=== PATIENT | male | born 1955 | race Caucasian/White ===

== ENCOUNTER 2023-07-15 20:48 | Inpatient (IN) | payer MEDICARE, OTHER ==
[2023-07-15 21:04] LABS: Glucose,Whole Blood 536 mg/dL (70-110)
[2023-07-15] MEDS: SODIUM CHLORIDE 0.9% 1,000 ML IV STA (21:41)
[2023-07-15] MEDS: ACETAMINOPHEN TAB 500 MG TAB PO STA (21:41)
[2023-07-15] MEDS: SODIUM CHLORIDE 0.9% 1,000 ML IV SCH (21:41)
[2023-07-15] MEDS: CYCLOBENZAPRINE 10 MG TAB PO STA (21:42)
[2023-07-15 22:02] LABS: Basophils % (A) 0 %; Eosinophils # (A) 0.1 k/uL (0-0.7); Eosinophils % (A) 0 %; HCT 50.2 % (39.0-53.0); HGB 15.6 gm/dL (13.0-17.5); Hypochromasia Slight; Lymphocytes # (A) 0.3 k/uL (1.0-4.8); Lymphocytes % (A) 1 %; MCH 29.1 pg (25.0-35.0); MCHC 31.1 g/dL (31.0-37.0); MCV 93.7 fL (80.0-100.0); Mean Platelet Volume 8.6; Monocytes # (A) 1.1 k/uL (0-1.0); Monocytes % (A) 4 %; Neutrophils # (A) 28.7 k/uL (1.3-7.7); Neutrophils % (A) 95 %; Platelet Count 377 k/uL (150-450); RBC 5.36 m/uL (4.30-5.90); WBC 30.3 k/uL (3.8-10.6)
[2023-07-15 22:19] LABS: ALT 89 U/L (4-49); AST 96 U/L (17-59); African American GFR (CKD) 65 (>60 ml/min/1.73 sqM); Albumin 3.3 g/dL (3.5-5.0); Alkaline Phosphatase 118 U/L (38-126); Anion Gap 13 mmol/L; Blood Urea Nitrogen 67 mg/dL (9-20); Calcium 8.8 mg/dL (8.4-10.2); Carbon Dioxide 24 mmol/L (22-30); Chloride 95 mmol/L (98-107); Non-African American GFR(CKD) 57 (>60 ml/min/1.73 sqM); Potassium 5.4 mmol/L (3.5-5.1); Sodium 132 mmol/L (137-145); Total Bilirubin 1.2 mg/dL (0.2-1.3); Total Protein 7.7 g/dL (6.3-8.2)
[2023-07-15 22:29] LABS: Creatine Kinase 1003 U/L (55-170); Glucose 597 mg/dL (74-99)
--- NOTE | 2023-07-15 22:36 | XR ---
EXAMINATION TYPE: XR chest 2V DATE OF EXAM: 07/15/2023 COMPARISON: NONE HISTORY: Fever TECHNIQUE: Frontal and lateral views of the chest are obtained. FINDINGS: There is no focal air space opacity, pleural effusion, or pneumothorax seen. The cardiac silhouette size is upper limits of normal. The osseous structures are intact. IMPRESSION: No acute pulmonary infiltrate.
[2023-07-15 23:02] LABS: RBC Morphology Normal
[2023-07-15] MEDS: SODIUM CHLORIDE 0.9% 1,000 ML IV ONE (23:15)
--- NOTE | 2023-07-16 00:39 | ED ---
General Adult HPI - General Chief complaint: Recheck/Abnormal Lab/Rx Stated complaint: Hyperglycemia Time Seen by Provider: 07/15/23 20:55 Source: patient Mode of arrival: EMS Limitations: no limitations - History of Present Illness Initial comments: 67-year-old male with past medical history of diabetes, hypertension who presents emergency department after he spent the weekend on the ground. Patient states that his right leg gave out and he fell to the ground. States that he was unable to get up. He did not hit his head. Denies any neck or back pain. Does admit to pain in his buttocks from sitting on the more weekend. His sister found him on the ground. When EMS checked on the patient they found that his blood glucose was over 500. He has been unable to take his prescribed medications as he recently moved to the area and does not have refills of most. Patient admits to numbness in the back of his thighs but is able to wiggle his toes. He denies any chest pain or difficulty breathing. Patient does have a fever. No other alleviating, precipitating or modifying factors - Related Data Previous Rx's Medication Instructions Recorded Acetaminophen Tab [Tylenol] 650 mg PO Q6HR PRN tab 07/20/23 DULoxetine HCL [Cymbalta] 30 mg PO DAILY cap 07/20/23 Heparin Sodium,Porcine (1 ml) 5,000 unit SQ Q8H each 07/20/23 [Heparin Sodium] INSULIN ASPART (NovoLOG) [NovoLOG 0 unit SQ ACHS each 07/20/23 (formulary)] Insulin Detemir (Levemir) [Levemir] 25 unit SQ DAILY@0700 each 07/20/23 Pantoprazole [Protonix] 40 mg PO AC-BRKFST tab 07/20/23 Tamsulosin [Flomax] 0.4 mg PO PC-BRKFST cap 07/20/23 cefUROXime axetiL [Cefuroxime] 500 mg PO BID 10 Days #20 tab 07/20/23 Allergies Allergy/AdvReac Type Severity Reaction Status Date / Time No Known Allergies Allergy Verified 07/16/23 07:25 Review of Systems ROS Statement: Those systems with pertinent positive or pertinent negative responses have been documented in the HPI. ROS Other: All systems not noted in ROS Statement are negative. Past Medical History Past Medical History: Diabetes Mellitus, Hypertension History of Any Multi-Drug Resistant Organisms: None Reported Past Surgical History: Prostate Surgery Past Psychological History: No Psychological Hx Reported Smoking Status: Former smoker Past Alcohol Use History: None Reported Past Drug Use History: None Reported - Past Family History Mother Family Medical History: Congestive Heart Failure (CHF) Additional Family Medical History / Comment(s): passed Father Family Medical History: Myocardial Infarction (NH) Additional Family Medical History / Comment(s): passed General Exam Limitations: no limitations General appearance: alert, in no apparent distress Head exam: Present: atraumatic, normocephalic, normal inspection Eye exam: Present: normal appearance, PERRL, EOMI. Absent: scleral icterus, conjunctival injection, periorbital swelling ENT exam: Present: mucous membranes dry Cardiovascular Exam: Present: tachycardia GI/Abdominal exam: Present: soft, normal bowel sounds. Absent: distended, tenderness, guarding, rebound, rigid Extremities exam: Present: other (Patient's states he has spasm in the right buttock.) Back exam: Present: normal inspection Neurological exam: Present: alert, oriented X3, CN II-XII intact Psychiatric exam: Present: normal affect Course Vital Signs 07/15/23 07/15/23 07/15/23 20:51 21:00 22:00 Temperature 100.8 F H Pulse Rate 118 H 114 H 112 H Pulse Rate [ Pulse Oximetery ] Respiratory 20 23 26 H Rate Blood Pressure 143/80 143/80 116/70 Blood Pressure [Right Arm] O2 Sat by Pulse 95 95 95 Oximetry 07/15/23 07/16/23 07/16/23 23:00 00:00 05:14 Temperature 98.9 F 98.0 F Pulse Rate 109 H 93 Pulse Rate [ Pulse Oximetery ] Respiratory 28 H 22 Rate Blood Pressure 127/57 126/65 Blood Pressure [Right Arm] O2 Sat by Pulse 88 L 96 Oximetry 07/16/23 07/16/23 07/16/23 06:50 07:27 10:47 Temperature 98.9 F 98.1 F Pulse Rate 109 H 100 78 Pulse Rate [ Pulse Oximetery ] Respiratory 23 95 H 18 Rate Blood Pressure 136/73 136/73 136/73 Blood Pressure [Right Arm] O2 Sat by Pulse 96 94 L Oximetry 07/16/23 12:06 Temperature 98.3 F Pulse Rate Pulse Rate [ 92 Pulse Oximetery ] Respiratory 18 Rate Blood Pressure Blood Pressure 140/77 [Right Arm] O2 Sat by Pulse 93 L Oximetry Procedures - Sepsis Sepsis Focused Exam #1 Time Sepsis Criteria Met: 03:15 Sepsis Focused Exam Date: 07/16/23 Sepsis Focused Exam Time: 04:00 Sepsis Focused Exam Complete: Yes Vital Signs & RN Notes Reviewed: Yes Capillary Refill: < 2 Seconds: Fingers, Toes Peripheral Pulses: Normal: Radial (R), Radial (L), Dorsalis Pedis (R), Dorsalis Pedis (L) Skin Color: Normal for Patient Respiratory Exam: normal lung sounds Cardiovascular Exam: regular rate Medical Decision Making - Medical Decision Making Was pt. sent in by a medical professional or institution (, PA, AMMUNITION SUPERVISOR, urgent care, hospital, or assisted...) When possible be specific @ -No Did you speak to anyone other than the patient for history (EMS, parent, family, police, friend...)? What history was obtained from this source @ -I spoke with EMS for history Did you review nursing and triage notes (agree or disagree)? Why? @ -I reviewed and agree with nursing and triage notes Were old charts reviewed (outside hosp., previous admission, EMS record, old EKG, old radiological studies, urgent care reports/EKG's, assisted records)? Report findings @ -No old charts were reviewed Differential Diagnosis (chest pain, altered mental status, abdominal pain women, abdominal pain men, vaginal bleeding, weakness, fever, dyspnea, syncope, he adache, dizziness, GI bleed, back pain, seizure, CVA, palpatations, mental health, musculoskeletal)? @ -Differential Weakness: Hypoglycemia, shock, sepsis, hyponatremia, anemia, infection, NH, ETOH, adverse medicine reaction, overdose, stroke, this is not meant to be an all-inclusive list. EKG interpreted by me (3pts min.). @ -EKG demonstrates sinus rhythm with a rate of 82. CT interval 158. QRS 100. QTc of 367. No acute ST segment elevations or depressions X-rays interpreted by me (1pt min.). @ -Yes which demonstrates no acute intrathoracic process CT interpreted by me (1pt min.). @ -None done U/S interpreted by me (1pt. min.). @ -None done What testing was considered but not performed or refused? (CT, X-rays, U/S, labs)? Why? @ -None What meds were considered but not given or refused? Why? @ -None Did you discuss the management of the patient with other professionals (laury miguel i.e. , PA, AMMUNITION SUPERVISOR, lab, RT, psych nurse, director social, constitutional law professor, teacher, dental officer, case folder)? Give summary @ -Spoke with Stacia from [facility] who will admit the patient Was smoking cessation discussed for >3mins.? @ -No Was critical care preformed (if so, how long)? @ -No Were there social determinants of health that impacted care today? How? (Homelessness, low income, unemployed, alcoholism, drug addiction, transportation, low edu. Level, literacy, decrease access to med. care, fdc, rehab)? @ -Patient relocated to the area and has not had his medications Was there de-escalation of care discussed even if they declined (Discuss DNR or withdrawal of care, Hospice)? DNR status @ -No What co-morbidities impacted this encounter? (DM, HTN, Smoking, COPD, CAD, Cancer, CVA, ARF, Chemo, Hep., AIDS, mental health diagnosis, sleep apnea, morbid obesity)? @ -Hypertension, diabetes Was patient admitted / discharged? Hospital course, mention meds given and route, prescriptions, significant lab abnormalities, going to OR and other pertinent info. @Upon arrival patient seen and evaluated in room 2. Thorough history and physical exam was performed. Laboratory studies are conducted. Chest x-ray was performed. I did recommend admission. Patient is covered with antibiotics for urinary tract infection. Patient admitted in stable condition Undiagnosed new problem with uncertain prognosis? @ -No Drug Therapy requiring intensive monitoring for toxicity (Heparin, Nitro, Ins ulin, Cardizem)? @ -No Were any procedures done? @ -No Diagnosis/symptom? @ -Acute fall, prolonged downtime, Acute hyperglycemia, lactic acidosis, elevated CK, leukocytosis, UTI Acute, or Chronic, or Acute on Chronic? @ -Acute Uncomplicated (without systemic symptoms) or Complicated (systemic symptoms)? @ -Complicated Side effects of treatment? @ -No Exacerbation, Progression, or Severe Exacerbation? @ -No Poses a threat to life or bodily function? How? (Chest pain, USA, NH, pneumonia, PE, COPD, DKA, ARF, appy, cholecystitis, CVA, Diverticulitis, Homicidal, Suicida l, threat to staff... and all critical care pts) @ -Yes as patient has significant lab abnormalities due to fall Source of infection is identified at 3:15 AM when patient is able to finally provide a urine sample. He had already been started on 130 cc of fluid and given a dose of Rocephin - Lab Data Result diagrams: 07/19/23 13:05 07/19/23 13:05 Lab Results 07/15/23 07/15/23 07/15/23 Range/Units 21:00 21:00 21:00 WBC 30.3 H (3.8-10.6) k/uL RBC 5.36 (4.30-5.90) m/uL Hgb 15.6 (13.0-17.5) gm/dL Hct 50.2 (39.0-53.0) % MCV 93.7 (80.0-100.0) fL MCH 29.1 (25.0-35.0) pg MCHC 31.1 (31.0-37.0) g/dL RDW 15.0 (11.5-15.5) % Plt Count 377 (150-450) k/uL MPV 8.6 Neutrophils % 95 % Lymphocytes % 1 % Monocytes % 4 % Eosinophils % 0 % Basophils % 0 % Neutrophils # 28.7 H (1.3-7.7) k/uL Lymphocytes # 0.3 L (1.0-4.8) k/uL Monocytes # 1.1 H (0-1.0) k/uL Eosinophils # 0.1 (0-0.7) k/uL Basophils # 0.0 (0-0.2) k/uL Manual Slide Review Performed RBC Morphology Normal Hypochromasia Slight Sodium 132 L (137-145) mmol/L Potassium 5.4 H (3.5-5.1) mmol/L Chloride 95 L (98-107) mmol/L Carbon Dioxide 24 (22-30) mmol/L Anion Gap 13 mmol/L BUN 67 H (9-20) mg/dL Creatinine 1.32 H (0.66-1.25) mg/dL Est GFR (CKD-EPI)AfAm 65 (>60 ml/min/1.73 sqM) Est GFR (CKD-EPI)NonAf 57 (>60 ml/min/1.73 sqM) Glucose 597 H* (74-99) mg/dL POC Glucose (mg/dL) 536 H (70-110) mg/dL POC Glu Requirements Manager ID Olimpia Summers Lactic Ac Sepsis Rflx Plasma Lactic Acid [place] (0.7-2.0) mmol/L Calcium 8.8 (8.4-10.2) mg/dL Total Bilirubin 1.2 (0.2-1.3) mg/dL AST 96 H (17-59) U/L ALT 89 H (4-49) U/L Alkaline Phosphatase 118 (38-126) U/L Creatine Kinase 1003 H* (55-170) U/L Total Protein 7.7 (6.3-8.2) g/dL Albumin 3.3 L (3.5-5.0) g/dL Urine Color Urine Appearance (Clear) Urine pH (5.0-8.0) Ur Specific [place] (1.001-1.035) Urine Protein (Negative) Urine Glucose (UA) (Negative) Urine Ketones (Negative) Urine Blood (Negative) Urine Nitrite (Negative) Urine Bilirubin (Negative) Urine Urobilinogen (<2.0) mg/dL Ur Leukocyte Esterase (Negative) Urine RBC (0-5) /hpf Urine WBC (0-5) /hpf Amorphous Sediment (None) /hpf Urine Bacteria (None) /hpf Hyaline Casts (0-2) /lpf Urine Mucus (None) /hpf Urine Yeast (Budding) (None) /hpf Acetone, Qual Negative (Negative) 07/15/23 07/15/23 07/16/23 Range/Units 21:00 22:38 00:56 WBC (3.8-10.6) k/uL RBC (4.30-5.90) m/uL Hgb (13.0-17.5) gm/dL Hct (39.0-53.0) % MCV (80.0-100.0) fL MCH (25.0-35.0) pg MCHC (31.0-37.0) g/dL RDW (11.5-15.5) % Plt Count (150-450) k/uL MPV Neutrophils % % Lymphocytes % % Monocytes % % Eosinophils % % Basophils % % Neutrophils # (1.3-7.7) k/uL Lymphocytes # (1.0-4.8) k/uL Monocytes # (0-1.0) k/uL Eosinophils # (0-0.7) k/uL Basophils # (0-0.2) k/uL Manual Slide Review RBC Morphology Hypochromasia Sodium (137-145) mmol/L Potassium (3.5-5.1) mmol/L Chloride (98-107) mmol/L Carbon Dioxide (22-30) mmol/L Anion Gap mmol/L BUN (9-20) mg/dL Creatinine (0.66-1.25) mg/dL Est GFR (CKD-EPI)AfAm (>60 ml/min/1.73 sqM) Est GFR (CKD-EPI)NonAf (>60 ml/min/1.73 sqM) Glucose (74-99) mg/dL POC Glucose (mg/dL) 497 H (70-110) mg/dL POC Glu Requirements Manager ID Olimpia Summers Lactic Ac Sepsis Rflx Y Plasma Lactic Acid [place] 4.2 H* (0.7-2.0) mmol/L Calcium (8.4-10.2) mg/dL Total Bilirubin (0.2-1.3) mg/dL AST (17-59) U/L ALT (4-49) U/L Alkaline Phosphatase (38-126) U/L Creatine Kinase (55-170) U/L Total Protein (6.3-8.2) g/dL Albumin (3.5-5.0) g/dL Urine Color Urine Appearance (Clear) Urine pH (5.0-8.0) Ur Specific [place] (1.001-1.035) Urine Protein (Negative) Urine Glucose (UA) (Negative) Urine Ketones (Negative) Urine Blood (Negative) Urine Nitrite (Negative) Urine Bilirubin (Negative) Urine Urobilinogen (<2.0) mg/dL Ur Leukocyte Esterase (Negative) Urine RBC (0-5) /hpf Urine WBC (0-5) /hpf Amorphous Sediment (None) /hpf Urine Bacteria (None) /hpf Hyaline Casts (0-2) /lpf Urine Mucus (None) /hpf Urine Yeast (Budding) (None) /hpf Acetone, Qual (Negative) 07/16/23 07/16/23 Range/Units 00:59 01:37 WBC (3.8-10.6) k/uL RBC (4.30-5.90) m/uL Hgb (13.0-17.5) gm/dL Hct (39.0-53.0) % MCV (80.0-100.0) fL MCH (25.0-35.0) pg MCHC (31.0-37.0) g/dL RDW (11.5-15.5) % Plt Count (150-450) k/uL MPV Neutrophils % % Lymphocytes % % Monocytes % % Eosinophils % % Basophils % % Neutrophils # (1.3-7.7) k/uL Lymphocytes # (1.0-4.8) k/uL Monocytes # (0-1.0) k/uL Eosinophils # (0-0.7) k/uL Basophils # (0-0.2) k/uL Manual Slide Review RBC Morphology Hypochromasia Sodium (137-145) mmol/L Potassium (3.5-5.1) mmol/L Chloride (98-107) mmol/L Carbon Dioxide (22-30) mmol/L Anion Gap mmol/L BUN (9-20) mg/dL Creatinine (0.66-1.25) mg/dL Est GFR (CKD-EPI)AfAm (>60 ml/min/1.73 sqM) Est GFR (CKD-EPI)NonAf (>60 ml/min/1.73 sqM) Glucose (74-99) mg/dL POC Glucose (mg/dL) (70-110) mg/dL POC Glu Requirements Manager ID Lactic Ac Sepsis Rflx Plasma Lactic Acid [place] 2.2 H* (0.7-2.0) mmol/L Calcium (8.4-10.2) mg/dL Total Bilirubin (0.2-1.3) mg/dL AST (17-59) U/L ALT (4-49) U/L Alkaline Phosphatase (38-126) U/L Creatine Kinase (55-170) U/L Total Protein (6.3-8.2) g/dL Albumin (3.5-5.0) g/dL Urine Color Light Yellow Urine Appearance Turbid (Clear) Urine pH 7.0 (5.0-8.0) Ur Specific [place] 1.016 (1.001-1.035) Urine Protein 1+ H (Negative) Urine Glucose (UA) 4+ H (Negative) Urine Ketones 1+ H (Negative) Urine Blood Moderate H (Negative) Urine Nitrite Negative (Negative) Urine Bilirubin Negative (Negative) Urine Urobilinogen <2.0 (<2.0) mg/dL Ur Leukocyte Esterase Large H (Negative) Urine RBC 81 H (0-5) /hpf Urine WBC >182 H (0-5) /hpf Amorphous Sediment Rare H (None) /hpf Urine Bacteria Many H (None) /hpf Hyaline Casts 81 H (0-2) /lpf Urine Mucus Rare H (None) /hpf Urine Yeast (Budding) Many H (None) /hpf Acetone, Qual (Negative) Disposition Clinical Impression: Fall, Elevated CK, Pyrexia of unknown origin, Hyperglycemia, Lactic acid acidosis Disposition: ADMITTED IP TO THIS [facility] Condition: Stable Is patient prescribed a controlled substance at d/c from ED?: No Time of Disposition: :34 Decision to Admit Reason: Admit from EC Decision Date: 07/16/23 Decision Time: 34
[2023-07-16 00:58] LABS: Glucose,Whole Blood 497 mg/dL (70-110)
[2023-07-16] MEDS ORDERED: DEXTROSE 50% SYRINGE 50 ML IVP PRN ×2 (01:18)
[2023-07-16] MEDS: INSULIN REGULAR 100 UNIT/ML VIAL (IM/SQ) SQ ONE (01:37)
[2023-07-16] MEDS: cefTRIAXone IN SWFI 1,000 MG/10 ML SYRINGE IVP STA (01:38)
[2023-07-16] MEDS ORDERED: NALOXONE 0.4 MG/ML 1 ML VIAL IV PRN (01:39)
[2023-07-16 03:15] LABS: Amorphous Sediment,Urine Rare /hpf; Appearance,Urine Turbid (Clear); Bacteria,Urine Many /hpf; Bilirubin,Urine Negative (Negative); Blood,Urine Moderate (Negative); Budding Yeast,Urine Many /hpf; Color,Urine Light Yellow; Glucose,Urine (UA) 4+ (Negative); Hyaline Casts,Urine 81 /lpf (0-2); Ketones,Urine 1+ (Negative); Leukocyte Esterase,Urine Large (Negative); Mucus,Urine Rare /hpf; Nitrite,Urine Negative (Negative); Protein,Urine 1+ (Negative); RBC,Urine 81 /hpf (0-5); Specific Gravity,Urine 1.016 (1.001-1.035); Urobilinogen,Urine <2.0 mg/dL (<2.0); WBC,Urine >182 /hpf (0-5)
[2023-07-16 03:15] LABS: Glucose,Whole Blood 464 mg/dL (70-110)
[2023-07-16] MEDS: CYCLOBENZAPRINE 10 MG TAB PO PRN (04:05)
[2023-07-16 08:39] LABS: Glucose,Whole Blood 382 mg/dL (70-110)
[2023-07-16 11:01] LABS: Glucose,Whole Blood 346 mg/dL (70-110)
[2023-07-16] MEDS: INSULIN ASPART (NovoLOG) 100 UNIT/ML VIAL SQ SCH ×2 (11:05→12:45)
--- NOTE | 2023-07-16 11:36 | P.HPIM ---
History of Present Illness Patient is 62-year-old male recently moved to this area from the [facility], has issues with insurance and does not have a PCP has not been taking his medications was found on the floor for 2 days. Patient appears to have generalized weakness and unable to move because of which he was on the ground found by the sister. Patient denies any syncope seizure-like activity. Patient is diabetic supposed to take metformin which she has not been taking and his blood sugars are very high and parented along with hyponatremia secondary to hyperglycemia. He has per the patient patient also has hypertension, psoriasis, sleep apnea has not been using CPAP machine. Patient also has diabetic neuropathy patient creatinine is 1.35 baseline is not available at this time patient is hyponatremic as mentioned above. Patient's urine is significantly abnormal with leukocytosis neutrophilic predominance. Patient had any UTI symptoms. Patient does not have any fever. Patient does have urinary incontinence and urinary retention issues unsure whether patient has been benign prostatic hypertrophy. Patient denies nausea vomiting abdominal pain patient denies any cough chest x-ray did not show any pneumonia blood cultures were obt ained. Patient was given a dose of Rocephin in ER. REVIEW OF SYSTEMS: Body due to All other review of systems are negative except those mentioned above PHYSICAL EXAMINATION: GENERAL: The patient is alert and oriented x3, not in any acute distress. Obese unkept HEENT: Pupils are round and equally reacting to light. EOMI. No scleral icterus. No conjunctival pallor. Normocephalic, atraumatic. No pharyngeal erythema. No thyromegaly. CARDIOVASCULAR: S1 and S2 present. No murmurs, rubs, or gallops. PULMONARY: Chest is clear to auscultation, no wheezing or crackles. ABDOMEN: Soft, nontender, nondistended, normoactive bowel sounds. No palpable organomegaly. MUSCULOSKELETAL: No joint swelling or deformity. EXTREMITIES: No cyanosis, clubbing, or pedal edema. NEUROLOGICAL: Gross neurological examination did not reveal any focal deficits. SKIN: Patient does have some rash consistent with psoriasis in both legs- possible urinary tract infection Assessment and plan : Patient was started on Rocephin as there is unclear leukocytosis and patient may have urinary retention as well. Urine cultures and blood cultures are pending. -Significant generalized weakness: Generalized deconditioning secondary to diabetic neuropathy -Uncontrolled elevated blood sugars secondary to noncompliance with medications patient will be started on 25 units of long-acting insulin along with sliding scale titrate depending on his insulin requirements -Diabetic peripheral neuropathy -Hyponatremia secondary to hyperglycemia expected to improve with correction of blood sugars -Hypertension: Patient blood pressure will be monitored presently not requiring any blood pressure medications at this time -Diabetes peripheral neuropathy patient will be started on Cymbalta -Possibly benign prostatic hypertrophy patient had a prostate surgery in the past -Lactic acidosis secondary to hyperglycemia dehydration and may be secondary to urinary tract infection DVT prophylaxis: Subcutaneous heparin Past Medical History Past Medical History: Diabetes Mellitus, Hypertension History of Any Multi-Drug Resistant Organisms: None Reported Past Surgical History: Prostate Surgery Past Psychological History: No Psychological Hx Reported Smoking Status: Former smoker Past Alcohol Use History: None Reported Past Drug Use History: None Reported Medications and Allergies Home Medications Medication Instructions Recorded Confirmed Type No Known Home Medications 07/16/23 07/16/23 History Allergies Allergy/AdvReac Type Severity Reaction Status Date / Time No Known Allergies Allergy Verified 07/16/23 07:25 Physical Exam Vitals: Vital Signs Temp Pulse Resp BP Pulse Ox 07/16/23 10:47 98.1 F 78 18 136/73 07/16/23 07:27 100 95 H 136/73 94 L 07/16/23 06:50 98.9 F 109 H 23 136/73 96 07/16/23 05:14 98.0 F 07/16/23 00:00 93 22 126/65 96 07/15/23 23:00 98.9 F 109 H 28 H 127/57 88 L 07/15/23 22:00 112 H 26 H 116/70 95 07/15/23 21:00 114 H 23 143/80 95 07/15/23 20:51 100.8 F H 118 H 20 143/80 95 Intake and Output 07/15/23 07/16/23 07/16/23 22:59 06:59 14:59 Other: Weight 158.757 kg Results CBC & Chem 7: 07/15/23 21:00 07/15/23 21:00 Labs: Abnormal Lab Results - Last 24 Hours (Table) 07/15/23 07/15/23 07/15/23 Range/Units 21:00 21:00 21:00 WBC 30.3 H (3.8-10.6) k/uL Neutrophils # 28.7 H (1.3-7.7) k/uL Lymphocytes # 0.3 L (1.0-4.8) k/uL Monocytes # 1.1 H (0-1.0) k/uL Sodium 132 L (137-145) mmol/L Potassium 5.4 H (3.5-5.1) mmol/L Chloride 95 L (98-107) mmol/L BUN 67 H (9-20) mg/dL Creatinine 1.32 H (0.66-1.25) mg/dL Glucose 597 H* (74-99) mg/dL POC Glucose (mg/dL) 536 H (70-110) mg/dL Plasma Lactic Acid [place] (0.7-2.0) mmol/L AST 96 H (17-59) U/L ALT 89 H (4-49) U/L Creatine Kinase 1003 H* (55-170) U/L Albumin 3.3 L (3.5-5.0) g/dL Urine Protein (Negative) Urine Glucose (UA) (Negative) Urine Ketones (Negative) Urine Blood (Negative) Ur Leukocyte Esterase (Negative) Urine RBC (0-5) /hpf Urine WBC (0-5) /hpf Amorphous Sediment (None) /hpf Urine Bacteria (None) /hpf Hyaline Casts (0-2) /lpf Urine Mucus (None) /hpf Urine Yeast (Budding) (None) /hpf 07/15/23 07/16/23 07/16/23 Range/Units 21:00 00:56 00:59 WBC (3.8-10.6) k/uL Neutrophils # (1.3-7.7) k/uL Lymphocytes # (1.0-4.8) k/uL Monocytes # (0-1.0) k/uL Sodium (137-145) mmol/L Potassium (3.5-5.1) mmol/L Chloride (98-107) mmol/L BUN (9-20) mg/dL Creatinine (0.66-1.25) mg/dL Glucose (74-99) mg/dL POC Glucose (mg/dL) 497 H (70-110) mg/dL Plasma Lactic Acid [place] 4.2 H* 2.2 H* (0.7-2.0) mmol/L AST (17-59) U/L ALT (4-49) U/L Creatine Kinase (55-170) U/L Albumin (3.5-5.0) g/dL Urine Protein (Negative) Urine Glucose (UA) (Negative) Urine Ketones (Negative) Urine Blood (Negative) Ur Leukocyte Esterase (Negative) Urine RBC (0-5) /hpf Urine WBC (0-5) /hpf Amorphous Sediment (None) /hpf Urine Bacteria (None) /hpf Hyaline Casts (0-2) /lpf Urine Mucus (None) /hpf Urine Yeast (Budding) (None) /hpf 07/16/23 07/16/23 07/16/23 Range/Units 01:37 03:14 08:39 WBC (3.8-10.6) k/uL Neutrophils # (1.3-7.7) k/uL Lymphocytes # (1.0-4.8) k/uL Monocytes # (0-1.0) k/uL Sodium (137-145) mmol/L Potassium (3.5-5.1) mmol/L Chloride (98-107) mmol/L BUN (9-20) mg/dL Creatinine (0.66-1.25) mg/dL Glucose (74-99) mg/dL POC Glucose (mg/dL) 464 H 382 H (70-110) mg/dL Plasma Lactic Acid [place] (0.7-2.0) mmol/L AST (17-59) U/L ALT (4-49) U/L Creatine Kinase (55-170) U/L Albumin (3.5-5.0) g/dL Urine Protein 1+ H (Negative) Urine Glucose (UA) 4+ H (Negative) Urine Ketones 1+ H (Negative) Urine Blood Moderate H (Negative) Ur Leukocyte Esterase Large H (Negative) Urine RBC 81 H (0-5) /hpf Urine WBC >182 H (0-5) /hpf Amorphous Sediment Rare H (None) /hpf Urine Bacteria Many H (None) /hpf Hyaline Casts 81 H (0-2) /lpf Urine Mucus Rare H (None) /hpf Urine Yeast (Budding) Many H (None) /hpf 07/16/23 07/16/23 Range/Units 09:11 11:00 WBC (3.8-10.6) k/uL Neutrophils # (1.3-7.7) k/uL Lymphocytes # (1.0-4.8) k/uL Monocytes # (0-1.0) k/uL Sodium (137-145) mmol/L Potassium (3.5-5.1) mmol/L Chloride (98-107) mmol/L BUN (9-20) mg/dL Creatinine (0.66-1.25) mg/dL Glucose (74-99) mg/dL POC Glucose (mg/dL) 346 H (70-110) mg/dL Plasma Lactic Acid [place] 2.2 H* (0.7-2.0) mmol/L AST (17-59) U/L ALT (4-49) U/L Creatine Kinase (55-170) U/L Albumin (3.5-5.0) g/dL Urine Protein (Negative) Urine Glucose (UA) (Negative) Urine Ketones (Negative) Urine Blood (Negative) Ur Leukocyte Esterase (Negative) Urine RBC (0-5) /hpf Urine WBC (0-5) /hpf Amorphous Sediment (None) /hpf Urine Bacteria (None) /hpf Hyaline Casts (0-2) /lpf Urine Mucus (None) /hpf Urine Yeast (Budding) (None) /hpf
[2023-07-16 12:42] LABS: HCT 47.4 % (39.0-53.0); HGB 14.5 gm/dL (13.0-17.5); Hypochromasia Slight; MCH 28.6 pg (25.0-35.0); MCHC 30.6 g/dL (31.0-37.0); MCV 93.7 fL (80.0-100.0); Mean Platelet Volume 9.1; Platelet Count 318 k/uL (150-450); RBC 5.06 m/uL (4.30-5.90); RDW 15.2 % (11.5-15.5); WBC 28.2 k/uL (3.8-10.6)
[2023-07-16] MEDS: HEPARIN SODIUM,PORCINE 5,000 UNIT/ML 1 ML VIAL SQ SCH (12:44)
[2023-07-16] MEDS: DULoxetine HCL 30 MG CAPSULE.DR PO SCH (12:45)
[2023-07-16 12:47] LABS: African American GFR (CKD) 87 (>60 ml/min/1.73 sqM); Anion Gap 9 mmol/L; Blood Urea Nitrogen 57 mg/dL (9-20); Calcium 8.7 mg/dL (8.4-10.2); Carbon Dioxide 23 mmol/L (22-30); Chloride 108 mmol/L (98-107); Glucose 375 mg/dL (74-99); Non-African American GFR(CKD) 75 (>60 ml/min/1.73 sqM); Potassium 4.3 mmol/L (3.5-5.1); Sodium 140 mmol/L (137-145)
[2023-07-16 14:08] LABS: Band Neutrophils % 9 %; Lymphocytes # (M) 0.56 k/uL (1.0-4.8); Metamyelocytes # (M) 0.28 k/uL (0); Metamyelocytes % 1 %; Monocytes # (M) 0.28 k/uL (0-1.0); Myelocytes # (M) 0.28 k/uL (0); Myelocytes % 1 %; Neutrophils % (M) 87 %; Nucleated Red Blood Cells 0 /100 WBC (0-0); Total Cells Counted 200
[2023-07-16] MEDS: INSULIN DETEMIR (LEVEMIR) 100 UNIT/ML SYR SQ SCH (14:49)
[2023-07-16] MEDS: ACETAMINOPHEN TAB 325 MG TAB PO PRN (15:58)
[2023-07-16 16:39] LABS: Glucose,Whole Blood 347 mg/dL (70-110)
[2023-07-16 20:36] LABS: Glucose,Whole Blood 151 mg/dL (70-110)
[2023-07-16] MEDS ORDERED: SODIUM CHLORIDE 0.9% 1,000 ML IV ONE (23:00)
[2023-07-17 06:21] LABS: Glucose,Whole Blood 123 mg/dL (70-110)
[2023-07-17 09:47] LABS: Basophils % (A) 0 %; Eosinophils # (A) 0.1 k/uL (0-0.7); Eosinophils % (A) 0 %; HCT 43.6 % (39.0-53.0); HGB 13.5 gm/dL (13.0-17.5); Lymphocytes # (A) 0.9 k/uL (1.0-4.8); Lymphocytes % (A) 5 %; MCH 28.7 pg (25.0-35.0); MCHC 30.9 g/dL (31.0-37.0); MCV 93.1 fL (80.0-100.0); Mean Platelet Volume 7.9; Monocytes # (A) 0.7 k/uL (0-1.0); Monocytes % (A) 4 %; Neutrophils % (A) 90 %; Platelet Count 269 k/uL (150-450); RBC 4.69 m/uL (4.30-5.90); WBC 17.8 k/uL (3.8-10.6)
[2023-07-17 10:10] LABS: African American GFR (CKD) >90 (>60 ml/min/1.73 sqM); Anion Gap 3 mmol/L; Blood Urea Nitrogen 37 mg/dL (9-20); Calcium 8.1 mg/dL (8.4-10.2); Carbon Dioxide 30 mmol/L (22-30); Chloride 106 mmol/L (98-107); Glucose 141 mg/dL (74-99); Non-African American GFR(CKD) >90 (>60 ml/min/1.73 sqM); Potassium 3.8 mmol/L (3.5-5.1); Sodium 139 mmol/L (137-145)
--- NOTE | 2023-07-17 10:48 | US ---
EXAMINATION TYPE: US kidneys/renal and bladder DATE OF EXAM: 07/17/2023 COMPARISON: NONE CLINICAL INDICATION: Male, 67 years old with history of UTI, Bacteremia; UTI, abn labs EXAM MEASUREMENTS: Right Kidney: 10.5x5.0x6.5 cm Left Kidney: 11.6x7.2x4.9 cm Right Kidney: No hydronephrosis or masses seen Left Kidney: hydro Bladder: 3.0x2.5x2.3cm diverticula noted at superior aspect of bladder Bilateral Jets seen: Yes No nephrolithiasis is seen. No masses are identified. The urinary bladder is anechoic. Bilateral u reteral jets are seen. exam limited by body habitus and limited patient mobility IMPRESSION: 1. Mild left hydronephrosis correlate for obstructive uropathy. 2. Bladder diverticula.
[2023-07-17 11:07] LABS: Glucose,Whole Blood 142 mg/dL (70-110)
[2023-07-17] MEDS: SODIUM CHLORIDE 0.9% 1,000 ML IV SCH (12:04)
[2023-07-17] MEDS: TAMSULOSIN 0.4 MG CAP.ER.24H PO SCH (12:04)
--- NOTE | 2023-07-17 14:37 | P.PN ---
Subjective Progress Note Date: 07/17/23 Patient is 62-year-old male recently moved to this area from the [facility], has issues with insurance and does not have a PCP has not been taking his medications was found on the floor for 2 days. Patient appears to have generalized weakness and unable to move because of which he was on the ground found by the sister. Patient denies any syncope seizure-like activity. Patient is diabetic supposed to take metformin which she has not been taking and his blood sugars are very high and parented along with hyponatremia secondary to hyperglycemia. He has per the patient patient also has hypertension, psoriasis, sleep apnea has not been using CPAP machine. Patient also has diabetic n europathy patient creatinine is 1.35 baseline is not available at this time patient is hyponatremic as mentioned above. Patient's urine is significantly abnormal with leukocytosis neutrophilic predominance. Patient had any UTI symptoms. Patient does not have any fever. Patient does have urinary incontinence and urinary retention issues unsure whether patient has been benign prostatic hypertrophy. Patient denies nausea vomiting abdominal pain patient denies any cough chest x-ray did not show any pneumonia blood cultures were obtained. Patient was given a dose of Rocephin in ER. 07/17/2023 Patient evaluated in follow-up today in the medical floor. States that he did recently see a urologist over in [facility] probably back in December and was felt to have prostate issues. He is having issues with urinary retention and found to have greater than 900 mL in his urinary bladder. A renal ultrasound does reveal mild left hydronephrosis unsure whether this is chronic or acute nevertheless he was started on Flomax and will ask urology to evaluate this patient. He is found to have Streptococcus bacteremia ID is been placed on consult patient does continue on IV ceftriaxone at this time, repeat blood cultures has been drawn and ID has been consulted for further recommendations of antibiotic therapy. White blood cell count is down to 17.8. His renal function has normalized. His blood glucose is also improved back down to a range of 120s to 150s. Review of Systems Constitutional: Denied any fatigue denied any fever. Cardio vascular: denied any chest pain, palpitations Gastrointestinal: denied any nausea, vomiting, diarrhea Pulmonary: Denied any shortness of breath cough Neurologic denied any new focal deficits All inpatient medications were reviewed and appropriate changes in these medications as dictated in the interval history and assessment and plan. All other review of systems are negative except those mentioned above PHYSICAL EXAMINATION: GENERAL: The patient is alert and oriented x3, not in any acute distress. Obese unkept HEENT: Pupils are round and equally reacting to light. EOMI. No scleral icterus. No conjunctival pallor. Normocephalic, atraumatic. No pharyngeal erythema. No thyromegaly. CARDIOVASCULAR: S1 and S2 present. No murmurs, rubs, or gallops. PULMONARY: Chest is clear to auscultation, no wheezing or crackles. ABDOMEN: Soft, nontender, nondistended, normoactive bowel sounds. No palpable organomegaly. MUSCULOSKELETAL: No joint swelling or deformity. EXTREMITIES: No cyanosis, clubbing, or pedal edema. NEUROLOGICAL: Gross neurological examination did not reveal any focal deficits. SKIN: Patient does have some rash consistent with psoriasis in both legs Assessment and plan -Acute urinary tract infection with sepsis, POA due to an obstructive uropathy, Patient was started on Rocephin. -Streptococcus bacteremia ID consultation and repeat blood cultures -Significant generalized weakness: Generalized deconditioning secondary to diabetic neuropathy, PT OT consultation recommending rehab on discharge. -Uncontrolled elevated blood sugars secondary to noncompliance with medications patient will be started on 25 units of long-acting insulin along with sliding scale titrate depending on his insulin requirements -Diabetic peripheral neuropathy -Hyponatremia secondary to hyperglycemia has improved -Hypertension: Patient blood pressure will be monitored presently not requiring any blood pressure medications at this time -Diabetes peripheral neuropathy patient will be started on Cymbalta -Possibly benign prostatic hypertrophy patient had a prostate surgery in the past -Lactic acidosis secondary to hyperglycemia dehydration and may be secondary to urinary tract infection DVT prophylaxis: Subcutaneous heparin GI prophylaxis: Protonix Full Code The impression and plan of care has been dictated by Mis Harris Nurse Practitioner as directed. Dr. Rubin MD I have performed a history and physical examination and medical decision making of this patient, discussed the same with the dictator, and agree with the dictators assessment and plan as written, documented as a scribe. Based on total visit time, I have performed more than 50% of this visit. Objective - Vital Signs Vital signs: Vital Signs Temp 97.4 F L 07/17/23 07:00 Pulse 72 07/17/23 08:00 Resp 16 07/17/23 08:00 BP 138/69 07/17/23 07:00 Pulse Ox 96 07/17/23 07:00 FiO2 Intake & Output 07/16/23 07/17/23 07/17/23 18:59 06:59 18:59 Output Total 600 250 Balance -600 -250 Weight 80 kg Output: Urine 600 250 Other: Voiding Method External Catheter External Catheter External Catheter - Labs CBC & Chem 7: 07/17/23 08:43 07/17/23 08:43 Labs: Abnormal Lab Results - Last 24 Hours (Table) 07/16/23 07/16/23 07/16/23 Range/Units 09:11 09:11 13:05 WBC 28.2 H (3.8-10.6) k/uL MCHC 30.6 L (31.0-37.0) g/dL Neutrophils # (1.3-7.7) k/uL Neutrophils # (Manual) 27.00 H (1.3-7.7) k/uL Lymphocytes # (1.0-4.8) k/uL Lymphocytes # (Manual) 0.56 L (1.0-4.8) k/uL Metamyelocytes # (Man) 0.28 H (0) k/uL Myelocytes # (Manual) 0.28 H (0) k/uL Chloride 108 H (98-107) mmol/L BUN 57 H (9-20) mg/dL Glucose 375 H (74-99) mg/dL POC Glucose (mg/dL) (70-110) mg/dL Plasma Lactic Acid Wellington 2.5 H* (0.7-2.0) mmol/L Calcium (8.4-10.2) mg/dL 07/16/23 07/16/23 07/17/23 Range/Units 16:37 20:34 06:19 WBC (3.8-10.6) k/uL MCHC (31.0-37.0) g/dL Neutrophils # (1.3-7.7) k/uL Neutrophils # (Manual) (1.3-7.7) k/uL Lymphocytes # (1.0-4.8) k/uL Lymphocytes # (Manual) (1.0-4.8) k/uL Metamyelocytes # (Man) (0) k/uL Myelocytes # (Manual) (0) k/uL Chloride (98-107) mmol/L BUN (9-20) mg/dL Glucose (74-99) mg/dL POC Glucose (mg/dL) 347 H 151 H 123 H (70-110) mg/dL Plasma Lactic Acid Wellington (0.7-2.0) mmol/L Calcium (8.4-10.2) mg/dL 07/17/23 07/17/23 07/17/23 Range/Units 08:43 08:43 11:07 WBC 17.8 H (3.8-10.6) k/uL MCHC 30.9 L (31.0-37.0) g/dL Neutrophils # 16.0 H (1.3-7.7) k/uL Neutrophils # (Manual) (1.3-7.7) k/uL Lymphocytes # 0.9 L (1.0-4.8) k/uL Lymphocytes # (Manual) (1.0-4.8) k/uL Metamyelocytes # (Man) (0) k/uL Myelocytes # (Manual) (0) k/uL Chloride (98-107) mmol/L BUN 37 H (9-20) mg/dL Glucose 141 H (74-99) mg/dL POC Glucose (mg/dL) 142 H (70-110) mg/dL Plasma Lactic Acid Wellington (0.7-2.0) mmol/L Calcium 8.1 L (8.4-10.2) mg/dL Microbiology - Last 24 Hours (Table) 07/15/23 22:59 Blood Culture Gram Stain - Preliminary Blood Blood Culture - Preliminary Strep agalactiae - (group b) 07/15/23 21:00 Blood Culture Gram Stain - Preliminary Blood Blood Culture - Preliminary Strep agalactiae - (group b) Molecular ID Assessment and Plan Time with Patient: Less than 30
[2023-07-17 16:37] LABS: Glucose,Whole Blood 278 mg/dL (70-110)
--- NOTE | 2023-07-17 18:00 | P.GSCN ---
History of Present Illness Consult date: 07/17/23 History of present illness: 67 yo male came to the er after becoming very week. the patient is obese and diabetic. He hadnt been taking his medications. Upon coming to the er he was found to have a uti, elevated wbc,incomplete bladder emptying. The nursing staff did a bladder can for graeter than 1000 ml of urine They attempted to place a catheter but failed. The patient states that this has happened before and it is due to an enlarged prostate. He does admit to a slwoer urinary stream in the recent past. Review of Systems All systems: negative - Constitutional Denies fever, Denies weight loss - EENT Eyes: denies blurred vision Ears, nose, mouth and throat: Denies dysphagia - Cardiovascular Denies chest pain, Denies shortness of breath - Respiratory Denies cough, Denies 7 - Gastrointestinal Reports as per HPI - Genitourinary Denies dysuria, Denies hematuria - Integumentary Denies rash, Denies unusual bruising - Neurological Denies headaches, Denies syncope - Hematologic/Lymphatic Denies easy bleeding, Denies easy bruising Past Medical History Past Medical History: Diabetes Mellitus, Hypertension History of Any Multi-Drug Resistant Organisms: None Reported Past Surgical History: Prostate Surgery Past Anesthesia/Blood Transfusion Reactions: No Reported Reaction Past Psychological History: No Psychological Hx Reported Smoking Status: Former smoker Past Alcohol Use History: None Reported Past Drug Use History: Marijuana Additional Drug Use History / Comment(s): has a "gummie" everyday - Past Family History Mother Family Medical History: Congestive Heart Failure (CHF) Additional Family Medical History / Comment(s): passed Father Family Medical History: Myocardial Infarction ([place]) Additional Family Medical History / Comment(s): passed Medications and Allergies Home Medications Medication Instructions Recorded Confirmed Type No Known Home Medications 07/16/23 07/16/23 History Allergies Allergy/AdvReac Type Severity Reaction Status Date / Time No Known Allergies Allergy Verified 07/16/23 07:25 Surgical - Exam Vital Signs Temp Pulse Resp BP Pulse Ox 100.8 F H 118 H 20 143/80 95 07/15/23 20:51 07/15/23 20:51 07/15/23 20:51 07/15/23 20:51 07/15/23 20:51 - General well developed, well nourished, no distress, obese - Eyes normal ocular movement, no icteric - ENT no hearing loss, no congestion - Neck no masses, trachea midline - Respiratory normal respiratory effort, clear to auscultation - Abdomen Abdomen: soft, non tender, no guarding, no rigid, no rebound - Integumentary no rash, no abnormal pigmentation - Neurologic no disoriented, no combative - Psychiatric oriented to time, oriented to person, oriented to place, speech is normal, memory intact Results - Labs 07/17/23 08:43 07/17/23 08:43 Abnormal Lab Results - Last 24 Hours (Table) 07/16/23 07/17/23 07/17/23 Range/Units 20:34 06:19 08:43 WBC (3.8-10.6) k/uL MCHC (31.0-37.0) g/dL Neutrophils # (1.3-7.7) k/uL Lymphocytes # (1.0-4.8) k/uL BUN (9-20) mg/dL Glucose (74-99) mg/dL POC Glucose (mg/dL) 151 H 123 H (70-110) mg/dL Hemoglobin A1c 12.3 H (<=6.0) % Calcium (8.4-10.2) mg/dL 07/17/23 07/17/23 07/17/23 Range/Units 08:43 08:43 11:07 WBC 17.8 H (3.8-10.6) k/uL MCHC 30.9 L (31.0-37.0) g/dL Neutrophils # 16.0 H (1.3-7.7) k/uL Lymphocytes # 0.9 L (1.0-4.8) k/uL BUN 37 H (9-20) mg/dL Glucose 141 H (74-99) mg/dL POC Glucose (mg/dL) 142 H (70-110) mg/dL Hemoglobin A1c (<=6.0) % Calcium 8.1 L (8.4-10.2) mg/dL 07/17/23 Range/Units 16:36 WBC (3.8-10.6) k/uL MCHC (31.0-37.0) g/dL Neutrophils # (1.3-7.7) k/uL Lymphocytes # (1.0-4.8) k/uL BUN (9-20) mg/dL Glucose (74-99) mg/dL POC Glucose (mg/dL) 278 H (70-110) mg/dL Hemoglobin A1c (<=6.0) % Calcium (8.4-10.2) mg/dL Microbiology - Last 24 Hours (Table) 07/15/23 22:59 Blood Culture Gram Stain - Preliminary Blood Blood Culture - Preliminary Strep agalactiae - (group b) 07/15/23 21:00 Blood Culture Gram Stain - Preliminary Blood Blood Culture - Preliminary Strep agalactiae - (group b) Molecular ID Diabetes panel 07/17/23 07/17/23 Range/Units 08:43 08:43 Sodium 139 (137-145) mmol/L Potassium 3.8 (3.5-5.1) mmol/L Chloride 106 (98-107) mmol/L Carbon Dioxide 30 (22-30) mmol/L BUN 37 H (9-20) mg/dL Creatinine 0.71 (0.66-1.25) mg/dL Glucose 141 H (74-99) mg/dL Hemoglobin A1c 12.3 H (<=6.0) % Calcium 8.1 L (8.4-10.2) mg/dL Calcium panel 07/17/23 Range/Units 08:43 Calcium 8.1 L (8.4-10.2) mg/dL Pituitary panel 07/17/23 Range/Units 08:43 Sodium 139 (137-145) mmol/L Potassium 3.8 (3.5-5.1) mmol/L Chloride 106 (98-107) mmol/L Carbon Dioxide 30 (22-30) mmol/L BUN 37 H (9-20) mg/dL Creatinine 0.71 (0.66-1.25) mg/dL Glucose 141 H (74-99) mg/dL Calcium 8.1 L (8.4-10.2) mg/dL Adrenal panel 07/17/23 Range/Units 08:43 Sodium 139 (137-145) mmol/L Potassium 3.8 (3.5-5.1) mmol/L Chloride 106 (98-107) mmol/L Carbon Dioxide 30 (22-30) mmol/L BUN 37 H (9-20) mg/dL Creatinine 0.71 (0.66-1.25) mg/dL Glucose 141 H (74-99) mg/dL Calcium 8.1 L (8.4-10.2) mg/dL Assessment and Plan Assessment: Impression: uti. diabetes, non compliant. obesity. urine retention Plan: catheter placement.
--- NOTE | 2023-07-17 18:06 | P.PCN ---
Date of Procedure: 07/17/23 Preoperative Diagnosis: urine retention, uti Postoperative Diagnosis: urine retention, uti, urethral stricture Procedure(s) Performed: difficult catheter placement, dilation of urethral stricture wit filiforms and followers. Surgeon: Wesley Tilley Pathology: none sent Condition: stable Disposition: floor Indications for Procedure: urine retention Description of Procedure: The patient is prepped anad draped sterily. I inspect the penis and the meatus is quite tight. I first try a 12 fr coude tip catheter and meet resistance in the mid penile uethra. I then pass a 5 fr spiral tip filiform into the bladder. I then sequentially dilate the urethra form 10 thru 16 fr. I then pass the 12 fr coude tip catheter successfully in the blader with good urine return Impression. Urethral stricture from distal bullb to pendulous urethra. The cath should stay in place at least 48-72 hours.
[2023-07-17 19:36] LABS: Glucose,Whole Blood 197 mg/dL (70-110)
--- NOTE | 2023-07-17 21:49 | P.CONS ---
History of Present Illness - Reason for Consult Consult date: 07/17/23 Bacteremia Requesting physician: Jorge Luis E Sheet - Chief Complaint Feeling weak and fall x 1 day - History of Present Illness Patient is a 67-year-old male with a past medical history significant for diabetes mellitus and hypertension history of BPH, patient presenting to the hospital for weakness apparently the patient had fell and was feeling so weak that he was unable to get up and spent the weekend on the ground his sister came and found him on the ground called EMS and the patient was brought into the hospital patient denies having any headache or URI symptoms no chest pain shortness of breath or cough nausea vomiting abdominal pain or diarrhea did have some difficulty urination but no burning suprapubic or flank pain on presentation to the hospital he did have fever 100.8 F patient was not tachycardic hypotensive or hypoxic no need for supplemental oxygen patient did have white count of 30,000 with a left shift BUN/creatinine mildly elevated l iver enzymes mildly elevated, did have a positive UA blood cultures came back positive for Streptococcus agalactiae prompting this consultation patient did have a chest x-ray that was negative for acute pulmonary process abdominal bladder ultrasound mild left hydronephrosis correlate for obstructive uropathy Review of Systems Positive point and negatives has been mentioned in the HPI, complete review of systems was performed and all other systems are negative Past Medical History Past Medical History: Diabetes Mellitus, Hypertension History of Any Multi-Drug Resistant Organisms: None Reported Past Surgical History: Prostate Surgery Past Anesthesia/Blood Transfusion Reactions: No Reported Reaction Past Psychological History: No Psychological Hx Reported Smoking Status: Former smoker Past Alcohol Use History: None Reported Past Drug Use History: Marijuana Additional Drug Use History / Comment(s): has a "gummie" everyday - Past Family History Mother Family Medical History: Congestive Heart Failure (CHF) Additional Family Medical History / Comment(s): passed Father Family Medical History: Myocardial Infarction ([place]) Additional Family Medical History / Comment(s): passed Medications and Allergies Home Medications Medication Instructions Recorded Confirmed Type Acetaminophen Tab [Tylenol] 650 mg PO Q6HR PRN tab 07/20/23 Rx DULoxetine HCL [Cymbalta] 30 mg PO DAILY cap 07/20/23 Rx Heparin Sodium,Porcine (1 ml) 5,000 unit SQ Q8H each 07/20/23 Rx [Heparin Sodium] INSULIN ASPART (NovoLOG) [NovoLOG 0 unit SQ ACHS each 07/20/23 Rx (formulary)] Insulin Detemir (Levemir) [Levemir] 25 unit SQ DAILY@0700 each 07/20/23 Rx Pantoprazole [Protonix] 40 mg PO AC-BRKFST tab 07/20/23 Rx Tamsulosin [Flomax] 0.4 mg PO PC-BRKFST cap 07/20/23 Rx cefUROXime axetiL [Cefuroxime] 500 mg PO BID 10 Days #20 tab 07/20/23 Rx Allergies Allergy/AdvReac Type Severity Reaction Status Date / Time No Known Allergies Allergy Verified 07/16/23 07:25 Physical Exam Vitals: Vital Signs Temp Pulse Resp BP Pulse Ox 07/17/23 08:00 72 16 07/17/23 07:00 97.4 F L 68 18 138/69 96 07/17/23 02:00 97.1 F L 65 20 126/66 94 L 07/16/23 20:00 96.9 F L 57 L 20 135/62 97 07/16/23 16:00 81 17 133/72 95 07/16/23 12:06 98.3 F 92 18 140/77 93 L Intake and Output 07/16/23 07/17/23 07/17/23 22:59 06:59 14:59 Output Total 600 250 Balance -600 -250 Output: Urine 600 250 Other: Voiding Method External Catheter External Catheter External Catheter GENERAL DESCRIPTION: Elderly male lying in bed, no distress. No tachypnea or accessory muscle of respiration use. HEENT: Shows Pallor , no scleral icterus. Oral mucous membrane is dry. No phar yngeal erythema or thrush NECK: Trachea central, no thyromegaly. LUNGS: Unlabored breathing. Clear to auscultation anteriorly. No wheeze or crackle. HEART: S1, S2, regular rate and rhythm. No loud murmur ABDOMEN: Soft, no tenderness , guarding or rigidity, no organomegaly EXTREMITIES: Swelling and minimal erythema to the right lower extremity no open wound or drainage SKIN: No rash, no masses palpable. NEUROLOGICAL: The patient is awake, alert, oriented x3, mood and affect normal. Results CBC & Chem 7: 07/19/23 13:05 07/19/23 13:05 Labs: Abnormal Lab Results - Last 24 Hours (Table) 05/20/24 05/20/24 05/20/24 Range/Units 09:11 09:11 13:05 WBC 28.2 H (3.8-10.6) k/uL MCHC 30.6 L (31.0-37.0) g/dL Neutrophils # (1.3-7.7) k/uL Neutrophils # (Manual) 27.00 H (1.3-7.7) k/uL Lymphocytes # (1.0-4.8) k/uL Lymphocytes # (Manual) 0.56 L (1.0-4.8) k/uL Metamyelocytes # (Man) 0.28 H (0) k/uL Myelocytes # (Manual) 0.28 H (0) k/uL Chloride 108 H (98-107) mmol/L BUN 57 H (9-20) mg/dL Glucose 375 H (74-99) mg/dL POC Glucose (mg/dL) (70-110) mg/dL Plasma Lactic Acid Wellington 2.5 H* (0.7-2.0) mmol/L Calcium (8.4-10.2) mg/dL 07/16/23 07/16/23 07/17/23 Range/Units 16:37 20:34 06:19 WBC (3.8-10.6) k/uL MCHC (31.0-37.0) g/dL Neutrophils # (1.3-7.7) k/uL Neutrophils # (Manual) (1.3-7.7) k/uL Lymphocytes # (1.0-4.8) k/uL Lymphocytes # (Manual) (1.0-4.8) k/uL Metamyelocytes # (Man) (0) k/uL Myelocytes # (Manual) (0) k/uL Chloride (98-107) mmol/L BUN (9-20) mg/dL Glucose (74-99) mg/dL POC Glucose (mg/dL) 347 H 151 H 123 H (70-110) mg/dL Plasma Lactic Acid [place] (0.7-2.0) mmol/L Calcium (8.4-10.2) mg/dL 07/17/23 07/17/23 07/17/23 Range/Units 08:43 08:43 11:07 WBC 17.8 H (3.8-10.6) k/uL MCHC 30.9 L (31.0-37.0) g/dL Neutrophils # 16.0 H (1.3-7.7) k/uL Neutrophils # (Manual) (1.3-7.7) k/uL Lymphocytes # 0.9 L (1.0-4.8) k/uL Lymphocytes # (Manual) (1.0-4.8) k/uL Metamyelocytes # (Man) (0) k/uL Myelocytes # (Manual) (0) k/uL Chloride (98-107) mmol/L BUN 37 H (9-20) mg/dL Glucose 141 H (74-99) mg/dL POC Glucose (mg/dL) 142 H (70-110) mg/dL Plasma Lactic Acid Wellington (0.7-2.0) mmol/L Calcium 8.1 L (8.4-10.2) mg/dL Microbiology - Last 24 Hours (Table) 07/15/23 22:59 Blood Culture Gram Stain - Preliminary Blood Blood Culture - Preliminary Strep agalactiae - (group b) 07/15/23 21:00 Blood Culture Gram Stain - Preliminary Blood Blood Culture - Preliminary Strep agalactiae - (group b) Molecular ID Assessment and Plan (1) Leukocytosis Current Visit: Yes Status: Acute Code(s): D72.829 - ELEVATED WHITE BLOOD CELL COUNT, UNSPECIFIED SNOMED Code(s): 857631938 (2) Streptococcal bacteremia Current Visit: Yes Status: Acute Code(s): R78.81 - BACTEREMIA; B95.5 - UNSP STREPTOCOCCUS THE CAUSE OF DISEASES CLASSD [facility] SNOMED Code(s): 827889027260 (3) UTI (urinary tract infection) Current Visit: Yes Status: Acute Code(s): N39.0 - URINARY TRACT INFECTION, SITE NOT SPECIFIED SNOMED Code(s): 10701054 Plan: 1patient presented hospital with sepsis in this patient noted to have fever elevated white count source possibly urinary in this patient has been on the floor unable to get up feeling weak did have some difficulty urination positive UA concerning for possible UTI with evidence of left-sided hydronephrosis on the ultrasound urology has been consulted. 2-patient did have a streptococcal agalactiae bacteremia which is usually of skin and soft tissue source patient did have some abrasion to the lower extremity but no significant redness could be cellulitis or related to the UTI, blood culture to be document clearance of bacteremia 3-Rocephin 2 g daily continue while waiting for condition to stabilize We will follow on clinical condition and cultures to further adjust medication if needed Thank you for this consultation we will follow the patient along with you Dictation was produced using [employer] dictation software. please excuse any grammatical, word or spelling errors. Time with Patient: Greater than 30
[2023-07-18 06:01] LABS: Glucose,Whole Blood 141 mg/dL (70-110)
[2023-07-18] MEDS: PANTOPRAZOLE 40 MG TABLET PO SCH (06:06)
[2023-07-18 10:32] LABS: Basophils % (A) 0 %; Eosinophils # (A) 0.1 k/uL (0-0.7); Eosinophils % (A) 1 %; HCT 40.3 % (39.0-53.0); HGB 12.6 gm/dL (13.0-17.5); Lymphocytes # (A) 0.8 k/uL (1.0-4.8); Lymphocytes % (A) 8 %; MCH 28.9 pg (25.0-35.0); MCHC 31.4 g/dL (31.0-37.0); MCV 92.2 fL (80.0-100.0); Mean Platelet Volume 7.8; Monocytes # (A) 0.5 k/uL (0-1.0); Monocytes % (A) 5 %; Neutrophils # (A) 9.1 k/uL (1.3-7.7); Neutrophils % (A) 85 %; Platelet Count 201 k/uL (150-450); RBC 4.37 m/uL (4.30-5.90); RDW 14.9 % (11.5-15.5); WBC 10.7 k/uL (3.8-10.6)
[2023-07-18 10:46] LABS: African American GFR (CKD) >90 (>60 ml/min/1.73 sqM); Anion Gap 1 mmol/L; Blood Urea Nitrogen 20 mg/dL (9-20); Calcium 7.8 mg/dL (8.4-10.2); Carbon Dioxide 28 mmol/L (22-30); Chloride 104 mmol/L (98-107); Glucose 205 mg/dL (74-99); Non-African American GFR(CKD) >90 (>60 ml/min/1.73 sqM); Potassium 3.8 mmol/L (3.5-5.1); Sodium 133 mmol/L (137-145)
[2023-07-18 11:55] LABS: Glucose,Whole Blood 140 mg/dL (70-110)
--- NOTE | 2023-07-18 13:34 | P.PN ---
Subjective Progress Note Date: 07/18/23 Patient is 62-year-old male recently moved to this area from the [facility], has issues with insurance and does not have a PCP has not been taking his medications was found on the floor for 2 days. Patient appears to have generalized weakness and unable to move because of which he was on the ground found by the sister. Patient denies any syncope seizure-like activity. Patient is diabetic supposed to take metformin which she has not been taking and his blood sugars are very high and parented along with hyponatremia secondary to hyperglycemia. He has per the patient patient also has hypertension, psoriasis, sleep apnea has not been using CPAP machine. Patient also has diabetic n europathy patient creatinine is 1.35 baseline is not available at this time patient is hyponatremic as mentioned above. Patient's urine is significantly abnormal with leukocytosis neutrophilic predominance. Patient had any UTI symptoms. Patient does not have any fever. Patient does have urinary incontinence and urinary retention issues unsure whether patient has been benign prostatic hypertrophy. Patient denies nausea vomiting abdominal pain patient denies any cough chest x-ray did not show any pneumonia blood cultures were obtained. Patient was given a dose of Rocephin in ER. 07/17/2023 Patient evaluated in follow-up today in the medical floor. States that he did recently see a urologist over in [facility] probably back in December and was felt to have prostate issues. He is having issues with urinary retention and found to have greater than 900 mL in his urinary bladder. A renal ultrasound does reveal mild left hydronephrosis unsure whether this is chronic or acute nevertheless he was started on Flomax and will ask urology to evaluate this patient. He is found to have Streptococcus bacteremia ID is been placed on consult patient does continue on IV ceftriaxone at this time, repeat blood cultures has been drawn and ID has been consulted for further recommendations of antibiotic therapy. White blood cell count is down to 17.8. His renal function has normalized. His blood glucose is also improved back down to a range of 120s to 150s. 07/18/2023 Patient evaluated today in follow up. No acute complaints overnight. Urology placed the ritchie catheter yesterday evening and was found to have urethral stricture which was dilated. Recommending to keep the catheter in place for 48 to 72 hours. Remains on IV ceftriaxone. White blood cell count down to 10.7. Sodium 133. ID following cultures. Review of Systems Constitutional: Denied any fatigue denied any fever. Cardio vascular: denied any chest pain, palpitations Gastrointestinal: denied any nausea, vomiting, diarrhea Pulmonary: Denied any shortness of breath cough Neurologic denied any new focal deficits All inpatient medications were reviewed and appropriate changes in these medications as dictated in the interval history and assessment and plan. All other review of systems are negative except those mentioned above PHYSICAL EXAMINATION: GENERAL: The patient is alert and oriented x3, not in any acute distress. Obese unkept HEENT: Pupils are round and equally reacting to light. EOMI. No scleral icterus. No conjunctival pallor. Normocephalic, atraumatic. No pharyngeal erythema. No thyromegaly. CARDIOVASCULAR: S1 and S2 present. No murmurs, rubs, or gallops. PULMONARY: Chest is clear to auscultation, no wheezing or crackles. ABDOMEN: Soft, nontender, nondistended, normoactive bowel sounds. No palpable organomegaly. MUSCULOSKELETAL: No joint swelling or deformity. EXTREMITIES: No cyanosis, clubbing, or pedal edema. NEUROLOGICAL: Gross neurological examination did not reveal any focal deficits. SKIN: Patient does have some rash consistent with psoriasis in both legs Assessment and plan -Acute urinary tract infection with sepsis, POA due to an obstructive uropathy, Patient was started on Rocephin. -Streptococcus bacteremia ID consultation and repeat blood cultures -Urinary retention/obstructive uropathy requiring dilation. Urology following. -Significant generalized weakness: Generalized deconditioning secondary to diabetic neuropathy, PT OT consultation recommending rehab on discharge. -Uncontrolled elevated blood sugars secondary to noncompliance with medications patient will be started on 25 units of long-acting insulin along with sliding scale titrate depending on his insulin requirements -Diabetic peripheral neuropathy -Hyponatremia secondary to hyperglycemia has improved -Hypertension: Patient blood pressure will be monitored presently not requiring any blood pressure medications at this time -Diabetes peripheral neuropathy patient will be started on Cymbalta -Possibly benign prostatic hypertrophy patient had a prostate surgery in the past -Lactic acidosis secondary to hyperglycemia dehydration and may be secondary to urinary tract infection DVT prophylaxis: Subcutaneous heparin GI prophylaxis: Protonix Full Code The impression and plan of care has been dictated by Mis Harris Nurse Practitioner as directed. Dr. Rubin MD I have performed a history and physical examination and medical decision making of this patient, discussed the same with the dictator, and agree with the dictators assessment and plan as written, documented as a scribe. Based on total visit time, I have performed more than 50% of this visit. Objective - Vital Signs Vital signs: Vital Signs Temp 98.1 F 07/18/23 01:47 Pulse 70 07/18/23 01:47 Resp 16 07/18/23 01:47 BP 113/57 07/18/23 01:47 Pulse Ox 96 07/18/23 01:47 FiO2 Intake & Output 07/17/23 07/18/23 07/18/23 18:59 06:59 18:59 Intake Total 500 Output Total 2049 750 Balance -1550 -750 Intake: Oral 500 Output: Urine 2049 750 Male - External 1200 Other: Voiding Method External Catheter Indwelling Catheter - Labs CBC & Chem 7: 07/18/23 10:08 07/18/23 10:08 Labs: Abnormal Lab Results - Last 24 Hours (Table) 07/17/23 07/17/23 07/17/23 Range/Units 08:43 08:43 08:43 WBC 17.8 H (3.8-10.6) k/uL MCHC 30.9 L (31.0-37.0) g/dL Neutrophils # 16.0 H (1.3-7.7) k/uL Lymphocytes # 0.9 L (1.0-4.8) k/uL BUN 37 H (9-20) mg/dL Glucose 141 H (74-99) mg/dL POC Glucose (mg/dL) (70-110) mg/dL Hemoglobin A1c 12.3 H (<=6.0) % Calcium 8.1 L (8.4-10.2) mg/dL 07/17/23 07/17/23 07/17/23 Range/Units 11:07 16:36 19:34 WBC (3.8-10.6) k/uL MCHC (31.0-37.0) g/dL Neutrophils # (1.3-7.7) k/uL Lymphocytes # (1.0-4.8) k/uL BUN (9-20) mg/dL Glucose (74-99) mg/dL POC Glucose (mg/dL) 142 H 278 H 197 H (70-110) mg/dL Hemoglobin A1c (<=6.0) % Calcium (8.4-10.2) mg/dL 07/18/23 Range/Units 05:52 WBC (3.8-10.6) k/uL MCHC (31.0-37.0) g/dL Neutrophils # (1.3-7.7) k/uL Lymphocytes # (1.0-4.8) k/uL BUN (9-20) mg/dL Glucose (74-99) mg/dL POC Glucose (mg/dL) 141 H (70-110) mg/dL Hemoglobin A1c (<=6.0) % Calcium (8.4-10.2) mg/dL Microbiology - Last 24 Hours (Table) 07/15/23 22:59 Blood Culture Gram Stain - Preliminary Blood Blood Culture - Preliminary Strep agalactiae - (group b) 07/15/23 21:00 Blood Culture Gram Stain - Preliminary Blood Blood Culture - Preliminary Strep agalactiae - (group b) Molecular ID Assessment and Plan Time with Patient: Less than 30
[2023-07-18 15:31] VITALS: BMI 29.3
[2023-07-18 16:56] LABS: Glucose,Whole Blood 119 mg/dL (70-110)
[2023-07-18 20:12] LABS: Glucose,Whole Blood 244 mg/dL (70-110)
[2023-07-19 06:12] LABS: Glucose,Whole Blood 181 mg/dL (70-110)
[2023-07-19 11:20] LABS: Glucose,Whole Blood 230 mg/dL (70-110)
--- NOTE | 2023-07-19 11:30 | P.PN ---
Subjective Progress Note Date: 07/19/23 Patient is 62-year-old male recently moved to this area from the [facility], has issues with insurance and does not have a PCP has not been taking his medications was found on the floor for 2 days. Patient appears to have generalized weakness and unable to move because of which he was on the ground found by the sister. Patient denies any syncope seizure-like activity. Patient is diabetic supposed to take metformin which she has not been taking and his blood sugars are very high and parented along with hyponatremia secondary to hyperglycemia. He has per the patient patient also has hypertension, psoriasis, sleep apnea has not been using CPAP machine. Patient also has diabetic neuropathy patient creatinine is 1.35 baseline is not available at this time patient is hyponatremic as mentioned above. Patient's urine is significantly abnormal with leukocytosis neutrophilic predominance. Patient had any UTI symptoms. Patient does not have any fever. Patient does have urinary incontinence and urinary retention issues unsure whether patient has been benign prostatic hypertrophy. Patient denies nausea vomiting abdominal pain patient denies any cough chest x-ray did not show any pneumonia blood cultures were obtained. Patient was given a dose of Rocephin in ER. 07/17/2023 Patient evaluated in follow-up today in the medical floor. States that he did recently see a urologist over in [facility] probably back in December and was felt to have prostate issues. He is having issues with urinary retention and found to have greater than 900 mL in his urinary bladder. A renal ultrasound does reveal mild left hydronephrosis unsure whether this is chronic or acute nevertheless he was started on Flomax and will ask urology to evaluate this patient. He is found to have Streptococcus bacteremia ID is been placed on consult patient does continue on IV ceftriaxone at this time, repeat blood cultures has been drawn and ID has been consulted for further recommendations of antibiotic therapy. White blood cell count is down to 17.8. His renal function has normalized. His blood glucose is also improved back down to a range of 120s to 150s. 07/18/2023 Patient evaluated today in follow up. No acute complaints overnight. Urology placed the ritchie catheter yesterday evening and was found to have urethral stricture which was dilated. Recommending to keep the catheter in place for 48 to 72 hours. Remains on IV ceftriaxone. White blood cell count down to 10.7. Sodium 133. ID following cultures. 07/19/2023 Patient is evaluated today in follow up. Patient has no acute complaints overnight. Indwelling catheter remains in place. Repeat blood cultures are negative so far. Remains on IV ceftriaxone for the streptococcus bacteremia and patient will remain in the hospital until blood cultures show clearance. ID is following closely. His renal function is WNL. Review of Systems Constitutional: Denied any fatigue denied any fever. Cardio vascular: denied any chest pain, palpitations Gastrointestinal: denied any nausea, vomiting, diarrhea Pulmonary: Denied any shortness of breath cough Neurologic denied any new focal deficits All inpatient medications were reviewed and appropriate changes in these medications as dictated in the interval history and assessment and plan. All other review of systems are negative except those mentioned above PHYSICAL EXAMINATION: GENERAL: The patient is alert and oriented x3, not in any acute distress. Obese unkept HEENT: Pupils are round and equally reacting to light. EOMI. No scleral icterus. No conjunctival pallor. Normocephalic, atraumatic. No pharyngeal erythema. No thyromegaly. CARDIOVASCULAR: S1 and S2 present. No murmurs, rubs, or gallops. PULMONARY: Chest is clear to auscultation, no wheezing or crackles. ABDOMEN: Soft, nontender, nondistended, normoactive bowel sounds. No palpable organomegaly. MUSCULOSKELETAL: No joint swelling or deformity. EXTREMITIES: No cyanosis, clubbing, or pedal edema. NEUROLOGICAL: Gross neurological examination did not reveal any focal deficits. SKIN: Patient does have some rash consistent with psoriasis in both legs Assessment and plan -Acute urinary tract infection with sepsis, POA due to an obstructive uropathy, Patient was started on Rocephin. -Streptococcus bacteremia ID consultation and repeat blood cultures. -Urinary retention/obstructive uropathy requiring dilation. Urology following. -Significant generalized weakness: Generalized deconditioning secondary to diabetic neuropathy, PT OT consultation recommending rehab on discharge. -Uncontrolled elevated blood sugars secondary to noncompliance with medications patient will be started on 25 units of long-acting insulin along with sliding scale titrate depending on his insulin requirements -Diabetic peripheral neuropathy -Hyponatremia secondary to hyperglycemia has improved -Hypertension: Patient blood pressure will be monitored presently not requiring any blood pressure medications at this time -Diabetes peripheral neuropathy patient will be started on Cymbalta -Possibly benign prostatic hypertrophy patient had a prostate surgery in the past -Lactic acidosis secondary to hyperglycemia dehydration and may be secondary to urinary tract infection DVT prophylaxis: Subcutaneous heparin GI prophylaxis: Protonix Full Code Repeat blood cultures are negative so far. Pending final culture to show clearance of the bacteremia. Discharge to [facility] when medically stable, will require insurance authorization. ID following closely. Monitor renal function. The impression and plan of care has been dictated by Mis Harris Nurse Practitioner as directed. Dr. Rubin MD I have performed a history and physical examination and medical decision making of this patient, discussed the same with the dictator, and agree with the dictators assessment and plan as written, documented as a scribe. Based on total visit time, I have performed more than 50% of this visit. Objective - Vital Signs Vital signs: Vital Signs Temp 98.4 F 07/19/23 08:00 Pulse 70 07/19/23 08:00 Resp 16 07/19/23 08:00 BP 153/69 07/19/23 08:00 Pulse Ox 92 L 07/19/23 08:00 FiO2 Intake & Output 07/18/23 07/19/23 07/19/23 18:59 06:59 18:59 Intake Total 120 Output Total 1325 2150 Balance -1325 -2150 120 Weight 80 kg Intake: Oral 120 Output: Urine 1325 2150 Other: Voiding Method Indwelling Catheter Indwelling Catheter Indwelling Catheter # Bowel Movements 1 - Labs CBC & Chem 7: 07/18/23 10:08 07/18/23 10:08 Labs: Abnormal Lab Results - Last 24 Hours (Table) 07/18/23 07/18/23 07/18/23 Range/Units 11:54 16:52 20:11 POC Glucose (mg/dL) 140 H 119 H 244 H (70-110) mg/dL 07/19/23 07/19/23 Range/Units 06:07 11:16 POC Glucose (mg/dL) 181 H 230 H (70-110) mg/dL Microbiology - Last 24 Hours (Table) 07/17/23 12:22 Blood Culture - Preliminary Blood 07/15/23 22:59 Blood Culture Gram Stain - Final Blood Blood Culture - Final Strep agalactiae - (group b) 07/15/23 21:00 Blood Culture Gram Stain - Final Blood Blood Culture - Final Strep agalactiae - (group b) Molecular ID Assessment and Plan Time with Patient: Less than 30
--- NOTE | 2023-07-19 13:14 | P.PN ---
Subjective Progress Note Date: 07/19/23 Principal diagnosis: Reason for follow-up is leukocytosis streptococcal bacteremia Patient is a 67-year-old male with a past medical history significant for diabetes mellitus and hypertension history of BPH, patient presenting to the hospital for weakness, patient did have a fall requiring EMS pickup and the patient was brought to the hospital patient did have elevated white count and blood culture positive for Streptococcus prompting this consultation patient did have a urology evaluation last evening for placement of a Scott catheter for retention. On today's evaluation that is 07/19/2023, patient has been afebrile, patient is breathing comfortably and is currently on room air, patient denies having any significant cough no chest pain shortness of breath, patient denies nausea vomiting or diarrhea and no abdominal pain, feeling better. Patient did not have any blood draw today blood culture repeat has been negative so far Objective - Vital Signs Vital signs: Vital Signs Temp 98.4 F 07/19/23 08:00 Pulse 70 07/19/23 08:00 Resp 16 07/19/23 08:00 BP 153/69 07/19/23 08:00 Pulse Ox 92 L 07/19/23 08:00 FiO2 Intake & Output 07/18/23 07/19/23 07/19/23 18:59 06:59 18:59 Intake Total 240 Output Total 1325 2150 1200 Balance -1325 -2150 -960 Weight 80 kg Intake: Oral 240 Output: Urine 1325 2150 1200 Other: Voiding Method Indwelling Catheter Indwelling Catheter Indwelling Catheter # Bowel Movements 1 - Exam GENERAL DESCRIPTION: An elderly male lying in bed in no distress RESPIRATORY SYSTEM: Unlabored breathing , decreased breath sounds at bases HEART: S1 S2 regular rate and rhythm , ABDOMEN: Soft , no tenderness EXTREMITIES: Bilateral leg with some swelling minimal redness no open wound or drainage - Labs CBC & Chem 7: 07/18/23 10:08 07/18/23 10:08 Labs: Abnormal Lab Results - Last 24 Hours (Table) 07/18/23 07/18/23 07/19/23 Range/Units 16:52 20:11 06:07 POC Glucose (mg/dL) 119 H 244 H 181 H (70-110) mg/dL 07/19/23 Range/Units 11:16 POC Glucose (mg/dL) 230 H (70-110) mg/dL Microbiology - Last 24 Hours (Table) 07/17/23 12:22 Blood Culture - Preliminary Blood 07/15/23 22:59 Blood Culture Gram Stain - Final Blood Blood Culture - Final Strep agalactiae - (group b) 07/15/23 21:00 Blood Culture Gram Stain - Final Blood Blood Culture - Final Strep agalactiae - (group b) Molecular ID Assessment and Plan (1) Cellulitis of right leg Current Visit: Yes Status: Acute Code(s): L03.115 - CELLULITIS OF RIGHT LOWER LIMB SNOMED Code(s): 40559134825705509 (2) Leukocytosis Current Visit: Yes Status: Acute Code(s): D72.829 - ELEVATED WHITE BLOOD CELL COUNT, UNSPECIFIED SNOMED Code(s): 169252403 (3) Streptococcal bacteremia Current Visit: Yes Status: Acute Code(s): R78.81 - BACTEREMIA; B95.5 - UNSP STREPTOCOCCUS THE CAUSE OF DISEASES CL[facility]SD [facility] SNOMED Code(s): 952743300366 (4) UTI (urinary tract infection) Current Visit: Yes Status: Acute Code(s): N39.0 - URINARY TRACT INFECTION, SITE NOT SPECIFIED SNOMED Code(s): 43170685 Plan: 1patient presented hospital with sepsis in this patient noted to have fever elevated white count source possibly urinary in this patient has been on the floor unable to get up feeling weak did have some difficulty urination positive UA concerning for possible UTI with evidence of left-sided hydronephrosis on the ultrasound urology has seen the patient and placed a Scott catheter 2-patient did have streptococcal agalactiae which is usually of skin and soft tissue source patient did have some abrasion and some redness to the right leg possible source of this bacteremia versus UTI 3-patient white count has improved repeat blood cultures have been negative, to continue with Rocephin 2 g daily while inpatient finishing therapy with oral Ceftin Dictation was produced using [employer] dictation software. please excuse any grammatical, word or spelling errors. Time with Patient: Less than 30
--- NOTE | 2023-07-19 13:14 | P.PN ---
Subjective Progress Note Date: 07/18/23 Principal diagnosis: Reason for follow-up is leukocytosis streptococcal bacteremia Patient is a 67-year-old male with a past medical history significant for diabetes mellitus and hypertension history of BPH, patient presenting to the hospital for weakness, patient did have a fall requiring EMS pickup and the patient was brought to the hospital patient did have elevated white count and blood culture positive for Streptococcus prompting this consultation patient did have a urology evaluation last evening for placement of a Scott catheter for retention. On today's evaluation that is 07/18/2023, Patient is afebrile patient is currently on room air and denies having any shortness of breath, the patient denies any chest pain or cough, the patient denies any nausea vomiting did not have any abdominal pain and no diarrhea, denies pain to lower extremity. Patient white count is down to 10.7, creatinine 0.6 2 repeat blood culture currently pending Objective - Vital Signs Vital signs: Vital Signs Temp 97.9 F 07/18/23 14:09 Pulse 67 07/18/23 14:09 Resp 19 07/18/23 14:09 BP 137/65 07/18/23 14:09 Pulse Ox 95 07/18/23 14:09 FiO2 Intake & Output 07/17/23 07/18/23 07/18/23 18:59 06:59 18:59 Intake Total 500 Output Total 2049 750 975 Balance -1550 -750 -975 Weight 80 kg Intake: Oral 500 Output: Urine 2049 750 975 Male - External 1200 Other: Voiding Method External Catheter Indwelling Catheter Indwelling Catheter # Bowel Movements 1 - Exam GENERAL DESCRIPTION: An elderly male lying in bed in no distress RESPIRATORY SYSTEM: Unlabored breathing , decreased breath sounds at bases HEART: S1 S2 regular rate and rhythm , ABDOMEN: Soft , no tenderness EXTREMITIES: Bilateral leg with some swelling minimal redness no open wound or drainage - Labs CBC & Chem 7: 07/18/23 10:08 07/18/23 10:08 Labs: Abnormal Lab Results - Last 24 Hours (Table) 07/17/23 07/17/23 07/17/23 Range/Units 08:43 16:36 19:34 WBC (3.8-10.6) k/uL Hgb (13.0-17.5) gm/dL Neutrophils # (1.3-7.7) k/uL Lymphocytes # (1.0-4.8) k/uL Sodium (137-145) mmol/L Creatinine (0.66-1.25) mg/dL Glucose (74-99) mg/dL POC Glucose (mg/dL) 278 H 197 H (70-110) mg/dL Hemoglobin A1c 12.3 H (<=6.0) % Calcium (8.4-10.2) mg/dL 07/18/23 07/18/23 07/18/23 Range/Units 05:52 10:08 10:08 WBC 10.7 H (3.8-10.6) k/uL Hgb 12.6 L (13.0-17.5) gm/dL Neutrophils # 9.1 H (1.3-7.7) k/uL Lymphocytes # 0.8 L (1.0-4.8) k/uL Sodium 133 L (137-145) mmol/L Creatinine 0.62 L (0.66-1.25) mg/dL Glucose 205 H (74-99) mg/dL POC Glucose (mg/dL) 141 H (70-110) mg/dL Hemoglobin A1c (<=6.0) % Calcium 7.8 L (8.4-10.2) mg/dL 07/18/23 Range/Units 11:54 WBC (3.8-10.6) k/uL Hgb (13.0-17.5) gm/dL Neutrophils # (1.3-7.7) k/uL Lymphocytes # (1.0-4.8) k/uL Sodium (137-145) mmol/L Creatinine (0.66-1.25) mg/dL Glucose (74-99) mg/dL POC Glucose (mg/dL) 140 H (70-110) mg/dL Hemoglobin A1c (<=6.0) % Calcium (8.4-10.2) mg/dL Microbiology - Last 24 Hours (Table) 07/15/23 22:59 Blood Culture Gram Stain - Final Blood Blood Culture - Final Strep agalactiae - (group b) 07/15/23 21:00 Blood Culture Gram Stain - Final Blood Blood Culture - Final Strep agalactiae - (group b) Molecular ID Assessment and Plan (1) Streptococcal bacteremia Current Visit: Yes Status: Acute Code(s): R78.81 - BACTEREMIA; B95.5 - UNSP STREPTOCOCCUS THE CAUSE OF DISEASES CLASSD [facility] SNOMED Code(s): 859047898201 (2) Leukocytosis Current Visit: Yes Status: Acute Code(s): D72.829 - ELEVATED WHITE BLOOD CELL COUNT, UNSPECIFIED SNOMED Code(s): 867395009 (3) UTI (urinary tract infection) Current Visit: Yes Status: Acute Code(s): N39.0 - URINARY TRACT INFECTION, SITE NOT SPECIFIED SNOMED Code(s): 58753030 (4) Cellulitis of right leg Current Visit: Yes Status: Acute Code(s): L03.115 - CELLULITIS OF RIGHT LOWER LIMB SNOMED Code(s): 98007324316677698 Plan: 1patient [facility] hospital with sepsis in this patient noted to have fever elevated white count source possibly urinary in this patient has been on the floor unable to get up feeling weak did have some difficulty urination positive UA concerning for possible UTI with evidence of left-sided hydronephrosis on the ultrasound urology has seen the patient and placed a Scott catheter 2-patient did have streptococcal agalactiae which is usually of skin and soft tissue source patient did have some abrasion and some redness to the right leg possible source of this bacteremia versus UTI 3-patient to continue with Rocephin 2 g daily and monitor clinical course closely Dictation was produced using [employer] dictation software. please excuse any grammatical, word or spelling errors. Time with Patient: Less than 30
[2023-07-19 13:34] LABS: Basophils % (A) 0 %; Eosinophils # (A) 0.1 k/uL (0-0.7); Eosinophils % (A) 1 %; HGB 12.7 gm/dL (13.0-17.5); Lymphocytes # (A) 0.9 k/uL (1.0-4.8); Lymphocytes % (A) 10 %; MCH 28.9 pg (25.0-35.0); MCHC 31.7 g/dL (31.0-37.0); MCV 91.1 fL (80.0-100.0); Mean Platelet Volume 7.8; Monocytes # (A) 0.4 k/uL (0-1.0); Monocytes % (A) 5 %; Neutrophils # (A) 7.3 k/uL (1.3-7.7); Neutrophils % (A) 82 %; Platelet Count 217 k/uL (150-450); RBC 4.39 m/uL (4.30-5.90); RDW 14.9 % (11.5-15.5); WBC 8.9 k/uL (3.8-10.6)
[2023-07-19 13:54] LABS: African American GFR (CKD) >90 (>60 ml/min/1.73 sqM); Anion Gap 3 mmol/L; Blood Urea Nitrogen 11 mg/dL (9-20); Calcium 7.9 mg/dL (8.4-10.2); Carbon Dioxide 28 mmol/L (22-30); Chloride 100 mmol/L (98-107); Glucose 293 mg/dL (74-99); Non-African American GFR(CKD) >90 (>60 ml/min/1.73 sqM); Potassium 4.4 mmol/L (3.5-5.1); Sodium 131 mmol/L (137-145)
[2023-07-19 16:45] LABS: Glucose,Whole Blood 264 mg/dL (70-110)
[2023-07-19 20:25] LABS: Glucose,Whole Blood 212 mg/dL (70-110)
[2023-07-20 05:41] LABS: Glucose,Whole Blood 126 mg/dL (70-110)
--- NOTE | 2023-07-20 06:06 | P.PN ---
Subjective Progress Note Date: 07/20/23 The patient was seen for urine retention. He had mild hydro secondary to the retention He had a urethral stricture dilated in order to place the catheter.He is stable ck=lincally. Objective - Vital Signs Vital signs: Vital Signs Temp 97.8 F 07/20/23 01:36 Pulse 68 07/20/23 01:36 Resp 16 07/20/23 01:36 BP 142/66 07/20/23 01:36 Pulse Ox 95 07/20/23 01:36 FiO2 Intake & Output 07/19/23 07/19/23 07/20/23 06:59 18:59 06:59 Intake Total 360 Output Total 2150 2250 500 Balance -2150 -1890 -500 Intake: Oral 360 Output: Gastric Drainage 0 Urine 2150 2250 500 Male - External 500 Stool 0 Urine/Stool Mix 0 Emesis 0 Oral Regurgitation 0 Other 0 Other: Voiding Method Indwelling Catheter Indwelling Catheter Indwelling Catheter # Voids 0 # Bowel Movements 0 - Labs CBC & Chem 7: 07/19/23 13:05 07/19/23 13:05 Labs: Abnormal Lab Results - Last 24 Hours (Table) 07/19/23 07/19/23 07/19/23 Range/Units 06:07 11:16 13:05 Hgb 12.7 L (13.0-17.5) gm/dL Lymphocytes # 0.9 L (1.0-4.8) k/uL Sodium (137-145) mmol/L Creatinine (0.66-1.25) mg/dL Glucose (74-99) mg/dL POC Glucose (mg/dL) 181 H 230 H (70-110) mg/dL Calcium (8.4-10.2) mg/dL 07/19/23 07/19/23 07/19/23 Range/Units 13:05 16:43 20:23 Hgb (13.0-17.5) gm/dL Lymphocytes # (1.0-4.8) k/uL Sodium 131 L (137-145) mmol/L Creatinine 0.54 L (0.66-1.25) mg/dL Glucose 293 H (74-99) mg/dL POC Glucose (mg/dL) 264 H 212 H (70-110) mg/dL Calcium 7.9 L (8.4-10.2) mg/dL 07/20/23 Range/Units 05:40 Hgb (13.0-17.5) gm/dL Lymphocytes # (1.0-4.8) k/uL Sodium (137-145) mmol/L Creatinine (0.66-1.25) mg/dL Glucose (74-99) mg/dL POC Glucose (mg/dL) 126 H (70-110) mg/dL Calcium (8.4-10.2) mg/dL Microbiology - Last 24 Hours (Table) 07/17/23 12:22 Blood Culture - Preliminary Blood 07/17/23 17:06 Urine Culture - Final Urine,Catheterized Assessment and Plan Assessment: Urine retention, hydro secondary to retention, Urethral stricture dilated. Plan; The catheter can be removed prior to d/c He shoud be seen in fu in the office
[2023-07-20] MEDS: PERMETHRIN 1% CREME RINSE 59 ML LIQUID TOPICAL STA (11:48)
[2023-07-20 11:52] LABS: Glucose,Whole Blood 165 mg/dL (70-110)
--- NOTE | 2023-07-20 15:32 | P.PN ---
Subjective Progress Note Date: 07/20/23 Principal diagnosis: Reason for follow-up is leukocytosis streptococcal bacteremia Patient is a 67-year-old male with a past medical history significant for diabetes mellitus and hypertension history of BPH, patient presenting to the hospital for weakness, patient did have a fall requiring EMS pickup and the patient was brought to the hospital patient did have elevated white count and blood culture positive for Streptococcus prompting this consultation patient did have a urology evaluation last evening for placement of a Scott catheter for retention. On today's evaluation that is 07/20/2023,the patient denies any fever or any chills, patient is breathing comfortably on room air, the patient denies chest pain shortness of breath and no significant cough, patient denies abdominal pain, no nausea vomiting or diarrhea. Patient Scott catheter has been disconti nued the patient was able to urinate per the nursing staff. No new labs has been obtained today blood culture repeat has been negative Objective - Vital Signs Vital signs: Vital Signs Temp 98.1 F 07/20/23 06:53 Pulse 71 07/20/23 06:53 Resp 18 07/20/23 06:53 BP 145/72 07/20/23 06:53 Pulse Ox 98 07/20/23 06:53 FiO2 Intake & Output 07/19/23 07/20/23 07/20/23 18:59 06:59 18:59 Intake Total 360 Output Total 2250 800 1100 Balance -1890 -800 -1100 Intake: Oral 360 Output: Gastric Drainage 0 Urine 2250 800 1100 Male - External 500 1100 Stool 0 Urine/Stool Mix 0 Emesis 0 Oral Regurgitation 0 Other 0 Other: Voiding Method Indwelling Catheter Indwelling Catheter # Voids 0 # Bowel Movements 0 - Exam GENERAL DESCRIPTION: An elderly male lying in bed in no distress RESPIRATORY SYSTEM: Unlabored breathing , decreased breath sounds at bases HEART: S1 S2 regular rate and rhythm , ABDOMEN: Soft , no tenderness EXTREMITIES: Bilateral leg with some swelling minimal redness no open wound or drainage - Labs CBC & Chem 7: 07/19/23 13:05 07/19/23 13:05 Labs: Abnormal Lab Results - Last 24 Hours (Table) 07/19/23 07/19/23 07/19/23 Range/Units 13:05 13:05 16:43 Hgb 12.7 L (13.0-17.5) gm/dL Lymphocytes # 0.9 L (1.0-4.8) k/uL Sodium 131 L (137-145) mmol/L Creatinine 0.54 L (0.66-1.25) mg/dL Glucose 293 H (74-99) mg/dL POC Glucose (mg/dL) 264 H (70-110) mg/dL Calcium 7.9 L (8.4-10.2) mg/dL 07/19/23 07/20/23 07/20/23 Range/Units 20:23 05:40 11:51 Hgb (13.0-17.5) gm/dL Lymphocytes # (1.0-4.8) k/uL Sodium (137-145) mmol/L Creatinine (0.66-1.25) mg/dL Glucose (74-99) mg/dL POC Glucose (mg/dL) 212 H 126 H 165 H (70-110) mg/dL Calcium (8.4-10.2) mg/dL Microbiology - Last 24 Hours (Table) 07/17/23 12:22 Blood Culture - Preliminary Blood 07/17/23 17:06 Urine Culture - Final Urine,Catheterized Assessment and Plan (1) Cellulitis of right leg Current Visit: Yes Status: Acute Code(s): L03.115 - CELLULITIS OF RIGHT LOWER LIMB SNOMED Code(s): 35673348577451916 (2) Leukocytosis Current Visit: Yes Status: Acute Code(s): D72.829 - ELEVATED WHITE BLOOD CELL COUNT, UNSPECIFIED SNOMED Code(s): 967119902 (3) Streptococcal bacteremia Current Visit: Yes Status: Acute Code(s): R78.81 - BACTEREMIA; B95.5 - UNSP STREPTOCOCCUS THE CAUSE OF DISEASES [facility] SNOMED Code(s): 990958017534 (4) UTI (urinary tract infection) Current Visit: Yes Status: Acute Code(s): N39.0 - URINARY TRACT INFECTION, SITE NOT SPECIFIED SNOMED Code(s): 17965679 Plan: 1patient presented hospital with sepsis in this patient noted to have fever elevated white count source possibly urinary in this patient has been on the fl oor unable to get up feeling weak did have some difficulty urination positive UA concerning for possible UTI with evidence of left-sided hydronephrosis on the ultrasound urology has seen the patient and placed a Scott catheter which has subsequently been discontinued 2-patient did have streptococcal agalactiae which is usually of skin and soft tissue source patient did have some abrasion and some redness to the right leg possible source of this bacteremia versus UTI 3-patient white count has improved repeat blood cultures have been negative, patient to continue with Rocephin while inpatient finishing therapy with oral Ceftin x 10 days on discharge Dictation was produced using [employer] dictation software. please excuse any grammatical, word or spelling errors. Time with Patient: Less than 30
[2023-07-20 16:44] LABS: Glucose,Whole Blood 240 mg/dL (70-110)
[2023-07-20 21:13] LABS: Glucose,Whole Blood 208 mg/dL (70-110)
[2023-07-20] MEDS: ZINC OXIDE PASTE (Z-GUARD) 1 APPLIC TOPICAL PRN (21:22)
[2023-07-21] MEDS: MELATONIN 3 MG TABLET PO SCH (01:35)
--- NOTE | 2023-07-21 04:43 | P.PN ---
Subjective Progress Note Date: 07/20/23 Patient is 62-year-old male recently moved to this area from the [facility], has issues with insurance and does not have a PCP has not been taking his medications was found on the floor for 2 days. Patient appears to have generalized weakness and unable to move because of which he was on the ground found by the sister. Patient denies any syncope seizure-like activity. Patient is diabetic supposed to take metformin which she has not been taking and his blood sugars are very high and parented along with hyponatremia secondary to hyperglycemia. He has per the patient patient also has hypertension, psoriasis, sleep apnea has not been using CPAP machine. Patient also has diabetic neuropat hy patient creatinine is 1.35 baseline is not available at this time patient is hyponatremic as mentioned above. Patient's urine is significantly abnormal with leukocytosis neutrophilic predominance. Patient had any UTI symptoms. Patient does not have any fever. Patient does have urinary incontinence and urinary retention issues unsure whether patient has been benign prostatic hypertrophy. Patient denies nausea vomiting abdominal pain patient denies any cough chest x- ray did not show any pneumonia blood cultures were obtained. Patient was given a dose of Rocephin in ER. 07/17/2023 Patient evaluated in follow-up today in the medical floor. States that he did recently see a urologist over in [facility] probably back in December and was felt to have prostate issues. He is having issues with urinary retention and found to have greater than 900 mL in his urinary bladder. A renal ultrasound does reveal mild left hydronephrosis unsure whether this is chronic or acute nevertheless he was started on Flomax and will ask urology to evaluate this patient. He is found to have Streptococcus bacteremia ID is been placed on consult patient does continue on IV ceftriaxone at this time, repeat blood cultures has been drawn and ID has been consulted for further recommendations of antibiotic therapy. White blood cell count is down to 17.8. His renal function has normalized. His blood glucose is also improved back down to a range of 120s to 150s. 07/18/2023 Patient evaluated today in follow up. No acute complaints overnight. Urology placed the ritchie catheter yesterday evening and was found to have urethral stricture which was dilated. Recommending to keep the catheter in place for 48 to 72 hours. Remains on IV ceftriaxone. White blood cell count down to 10.7. Sodium 133. ID following cultures. 07/19/2023 Patient is evaluated today in follow up. Patient has no acute complaints overnight. Indwelling catheter remains in place. Repeat blood cultures are negative so far. Remains on IV ceftriaxone for the streptococcus bacteremia and patient will remain in the hospital until blood cultures show clearance. ID is following closely. His renal function is WNL. 07/20/2023 Patient is seen and evaluated in follow-up this morning with multiple medical consultations following. Patient is maintained on IV antibiotics and will transition to Ceftin on discharge with infectious disease following. Urology has reevaluated the patient recommending trial of void and will discontinue Ritchie and monitor for any retention. Patient is afebrile with no reports of chest pain or shortness of breath. Patient evaluated by PT/OT therapy with plans on going to [facility]. Patient has received insurance authorization. Per nursing staff sister contacted reporting patient has lice and permethrin shampoo was ordered. Patient later reported he has had it and thought he treated it although reports to using head and shoulders for treatment. Per case management patient needs to be treated and monitored for an additional 24 hours after treatment. Review of Systems Constitutional: Denied any fatigue denied any fever. Cardio vascular: denied any chest pain, palpitations Gastrointestinal: denied any nausea, vomiting, diarrhea Pulmonary: Denied any shortness of breath cough Neurologic reports of generalized weakness PHYSICAL EXAMINATION: GENERAL: The patient is alert and oriented x3, not in any acute distress. Obese, unkempt, appears elderly, well-developed HEENT: Pupils are round and equally reacting to light. EOMI. No scleral icterus. No conjunctival pallor. Normocephalic, atraumatic. No pharyngeal erythema. No thyromegaly. CARDIOVASCULAR: S1 and S2 muffled PULMONARY: Diminished breath sounds bilaterally otherwise chest is clear to auscultation, no wheezing or crackles. ABDOMEN: Soft, obese, nontender, nondistended, normoactive bowel sounds. No palpable organomegaly. MUSCULOSKELETAL: No joint swelling or deformity. EXTREMITIES: No cyanosis, clubbing, or pedal edema. NEUROLOGICAL: Gross neurological examination did not reveal any focal deficits. SKIN: Patient does have some rash consistent with psoriasis in both legs Assessment: -Acute urinary tract infection with sepsis, POA due to an obstructive uropathy -Streptococcus bacteremia secondary to above, most recent blood cultures have been negative -Pediculosis capitis, present on admission -Urinary retention/obstructive uropathy requiring dilation. -Significant generalized weakness: Generalized deconditioning secondary to diabetic neuropathy -Uncontrolled elevated blood sugars secondary to noncompliance with medications -Diabetic peripheral neuropathy -Hyponatremia secondary to hyperglycemia has improved -Hypertension: Patient blood pressure will be monitored presently not requiring any blood pressure medications at this time -Diabetes peripheral neuropathy -Possibly benign prostatic hypertrophy patient had a prostate surgery in the past -Lactic acidosis secondary to hyperglycemia dehydration and may be secondary to urinary tract infection, improved DVT prophylaxis: Subcutaneous heparin GI prophylaxis: Protonix Full Code Plan: Patient being followed by urology along with infectious disease. Patient does have a Ritchie and recommend trial voiding to monitor for any further retention and will need outpatient follow-up with urology Patient is continued on ceftriaxone with infectious disease following and will transition to oral Ceftin on discharge PT/OT therapy evaluated the patient recommending rehab and patient and family are agreeable. Per case management patient has received insurance authorization. Later in the day, sister notified nursing staff patient made her aware he has lice and he has been attempting to treat it with head and shoulder shampoo. Will order permethrin and treat the patient. Per case management patient needs to be monitored for 24 hours after treatment prior to going to ECF. Repeat blood cultures have been negative Continue current regimen including monitoring blood sugars with Accu-Cheks ACHS and will adjust medications accordingly. Due to multiple complex medical issues, overall prognosis is guarded Possible discharge in the next 24 hours The impression and plan of care has been dictated by Deja Loera, Nurse Practitioner as directed. Dr. Lacho MD I have performed a history and physical examination and medical decision making of this patient, discussed the same with the dictator, and agree with the dictators assessment and plan as written, documented as a scribe. Based on total visit time, I have performed more than 50% of this visit. Objective - Vital Signs Vital signs: Vital Signs Temp 98 F 07/21/23 02:45 Pulse 68 07/21/23 02:45 Resp 16 07/21/23 02:45 BP 142/53 07/21/23 02:45 Pulse Ox 93 L 07/21/23 02:45 FiO2 Intake & Output 07/20/23 07/20/23 07/21/23 06:59 18:59 06:59 Output Total 800 1400 350 Balance -800 -1400 -350 Output: Urine 800 1400 350 Male - External 1100 Other: Voiding Method Indwelling Catheter Urinal # Voids 200 # Bowel Movements 0 - Labs CBC & Chem 7: 07/19/23 13:05 07/19/23 13:05 Labs: Abnormal Lab Results - Last 24 Hours (Table) 07/20/23 07/20/23 07/20/23 Range/Units 05:40 11:51 16:43 POC Glucose (mg/dL) 126 H 165 H 240 H (70-110) mg/dL 07/20/23 Range/Units 21:12 POC Glucose (mg/dL) 208 H (70-110) mg/dL Microbiology - Last 24 Hours (Table) 07/17/23 12:22 Blood Culture - Preliminary Blood
--- NOTE | 2023-07-21 04:50 | P.DS ---
Providers Date of admission: 07/16/23 01:48 Expected date of discharge: 07/21/23 Attending physician: Ignacio Monk Consults: 07/16/23 21:41 Consult Physician Routine Consulting Provider: Melba Stauffer Consult Reason/Comments: bacteremia Do you want consulting provider notified?: Yes 07/17/23 11:58 Consult Physician Routine Consulting Provider: Wesley Tilley Consult Reason/Comments: left hydronephrosis, UTI Do you want consulting provider notified?: Yes Primary care physician: Stated None Hospital Course: Final diagnosis -Acute urinary tract infection with sepsis, POA due to an obstructive uropathy -Streptococcus bacteremia secondary to above, most recent blood cultures have been negative -Pediculosis capitis, present on admission -Urinary retention/obstructive uropathy requiring dilation. -Significant generalized weakness: Generalized deconditioning secondary to diabetic neuropathy -Uncontrolled elevated blood sugars secondary to noncompliance with medications -Diabetic peripheral neuropathy -Hyponatremia secondary to hyperglycemia has improved -Hypertension: Patient blood pressure will be monitored presently not requiring any blood pressure medications at this time -Diabetes peripheral neuropathy -Possibly benign prostatic hypertrophy patient had a prostate surgery in the past -Lactic acidosis secondary to hyperglycemia dehydration and may be secondary to urinary tract infection, improved DVT prophylaxis: Subcutaneous heparin GI prophylaxis: Protonix Full Code Discharge disposition Patient is being discharged in a stable condition with guarded prognosis to [facility]. Patient will follow-up with Dr. Gamez in the outpatient setting upon discharge. Patient is to continue with oral Ceftin on discharge per ID recommendations and close outpatient follow-up with urology as scheduled. Total time taken is greater than 35 minutes. Hospital course This is a 67-year-old male who was recently admitted with generalized weakness and medical debility found on the ground with inability to ambulate. Patient was noted to have an acute urinary tract infection with sepsis, present on admission and found to have obstructive uropathy. Patient was evaluated by urology with urinary retention and required dilatation due to stricture. Patient did have indwelling Scott catheter and has been removed and patient is voiding. Monitor for any further retention and again will need outpatient follow-up with urology for further intervention. Most recent cultures have been negative and patient will transition to oral Ceftin on discharge per ID recommendations. Nursing staff was notified by sister that patient was noted to have head lice and does have significant hair on his head along with a very large mills and will be treated with permethrin. Encouraged and recommend haircut and shaving as well. Per case management patient has received insurance authorization and has been accepted at [facility] and the bed will be available on 07/21/2023. Patient [place] of [place] this area and will need to establish with primary care provider in the outpatient setting. Resources were provided. Currently no reports of chest pain, shortness of breath, or palpitations. Patient is afebrile. No reports of nausea or vomiting and patient is tolerating diet. Patient is a diabetic recommend Accu-Cheks before meals and at bedtime and adjustments to insulins as needed. Patient will be going to [facility] today. Guarded prognosis and high risk for readmissions given patient's noncompliance to medical care and treatment along with significant comorbidities and diabetes. Physical exam: Gen: This is a 67-year-old male who is awake, alert and oriented x 3, well- developed, elderly appearing, unkempt HEENT: Head is atraumatic, normocephalic. Pupils equal, round. Sclerae is anicteric. NECK: Supple. No JVD. No lymphadenopathy. No thyromegaly. LUNGS: Diminished breath sounds bilaterally otherwise clear to auscultation. No wheezes or rhonchi. No intercostal retractions. HEART: S1, S2 are muffled ABDOMEN: Soft. Bowel sounds are present. No masses. No tenderness. EXTREMITIES: No pedal edema. No calf tenderness. NEUROLOGICAL: Patient is awake, alert and oriented x3. Cranial nerves 2 through 12 are grossly intact. Diffusely weak Please refer to medication reconciliation sheet for a list of medications. The impression and plan of care has been dictated by Deja Loera, Nurse Practitioner as directed. Dr. Lacho MD I have performed a history and examination and MDM of this patient, discussed the same with the dictator, and agree with the dictator's assessment and plan as written ,documented as a scribe. Based on total visit time, I have performed more than 50% of the visit. Patient Condition at Discharge: Stable Plan - Discharge Summary Discharge Rx Participant: No New Discharge Prescriptions: New DULoxetine HCL [Cymbalta] 30 mg PO DAILY cap Tamsulosin [Flomax] 0.4 mg PO PC-BRKFST cap Heparin Sodium,Porcine (1 ml) [Heparin Sodium] 5,000 unit SQ Q8H each Insulin Detemir (Levemir) [Levemir] 25 unit SQ DAILY@0700 each INSULIN ASPART (NovoLOG) [NovoLOG (formulary)] 0 unit SQ ACHS each Pantoprazole [Protonix] 40 mg PO AC-BRKFST tab Acetaminophen Tab [Tylenol] 650 mg PO Q6HR PRN tab PRN Reason: Mild Pain Or Fever > 100.5 cefUROXime axetiL [Cefuroxime] 500 mg PO BID 10 Days #20 tab Discharge Medication List Acetaminophen Tab [Tylenol] 650 mg PO Q6HR PRN tab 07/20/23 [Rx] DULoxetine HCL [Cymbalta] 30 mg PO DAILY cap 07/20/23 [Rx] Heparin Sodium,Porcine (1 ml) [Heparin Sodium] 5,000 unit SQ Q8H each 07/20/23 [Rx] INSULIN ASPART (NovoLOG) [NovoLOG (formulary)] 0 unit SQ ACHS each 07/20/23 [Rx] Insulin Detemir (Levemir) [Levemir] 25 unit SQ DAILY@0700 each 07/20/23 [Rx] Pantoprazole [Protonix] 40 mg PO AC-BRKFST tab 07/20/23 [Rx] Tamsulosin [Flomax] 0.4 mg PO PC-BRKFST cap 07/20/23 [Rx] cefUROXime axetiL [Cefuroxime] 500 mg PO BID 10 Days #20 tab 07/20/23 [Rx] Follow up Appointment(s)/Referral(s): Rico Gamez MD [STAFF PHYSICIAN] - 1-2 Days Efrain Velásquez MD [REFERRING] - 1 Week Wesley Tilley MD [STAFF PHYSICIAN] - 1 Week Activity/Diet/Wound Care/Special Instructions: Patient is going to ECF Activity as tolerated Follow-up and establish with primary care providers on discharge Continue with antibiotic recommendations per ID Follow-up with endocrine outpatient Continue monitoring Accu-Cheks before meals and at bedtime NovoLog sliding scale 0-150 equals 0 units 151-200 equals 2 units 201-250 equals 4 units 251-300 equals 6 units 301-350 equals 8 units 351-400 equals 10 units Please notify provider if blood sugar is 400 or above Continue consistent carb diet Follow-up with urology outpatient Discharge/Stand Alone Forms: Area PCPs Discharge Disposition: TRANSFER TO SNF/ECF
[2023-07-21 05:42] LABS: Glucose,Whole Blood 125 mg/dL (70-110)
[2023-07-21 09:14] VITALS: BP 148/73; PULSE 70; RESP 18; TEMP 97.8
[2023-07-21 11:34] LABS: Glucose,Whole Blood 195 mg/dL (70-110)
--- NOTE | 2023-07-21 13:44 | P.PN ---
Subjective Progress Note Date: 07/21/23 Principal diagnosis: Reason for follow-up is leukocytosis streptococcal bacteremia Patient is a 67-year-old male with a past medical history significant for diabetes mellitus and hypertension history of BPH, patient presenting to the hospital for weakness, patient did have a fall requiring EMS pickup and the patient was brought to the hospital patient did have elevated white count and blood culture positive for Streptococcus prompting this consultation patient did have a urology evaluation last evening for placement of a Sctot catheter for retention. On today's evaluation that is 07/21/2023,the patient remains to be afebrile, patient is on room air not requiring supplemental oxygen and denies any shortness of breath no chest pain or cough.Patient denies having any nausea or vomiting, no abdominal pain and no diarrhea has been reported, feeling better no new symptoms. No new labs has been obtained today Objective - Vital Signs Vital signs: Vital Signs Temp 98 F 07/21/23 02:45 Pulse 68 07/21/23 02:45 Resp 16 07/21/23 02:45 BP 142/53 07/21/23 02:45 Pulse Ox 93 L 07/21/23 02:45 FiO2 Intake & Output 07/20/23 07/21/23 07/21/23 18:59 06:59 18:59 Output Total 1400 650 Balance -1400 -650 Output: Urine 1400 650 Male - External 1100 Other: Voiding Method Urinal # Voids 200 # Bowel Movements 0 - Exam GENERAL DESCRIPTION: An elderly male lying in bed in no distress RESPIRATORY SYSTEM: Unlabored breathing , decreased breath sounds at bases HEART: S1 S2 regular rate and rhythm , ABDOMEN: Soft , no tenderness EXTREMITIES: Bilateral leg with some swelling minimal redness no open wound or drainage - Labs CBC & Chem 7: 07/19/23 13:05 07/19/23 13:05 Labs: Abnormal Lab Results - Last 24 Hours (Table) 07/20/23 07/20/23 07/20/23 Range/Units 11:51 16:43 21:12 POC Glucose (mg/dL) 165 H 240 H 208 H (70-110) mg/dL 07/21/23 Range/Units 05:40 POC Glucose (mg/dL) 125 H (70-110) mg/dL Microbiology - Last 24 Hours (Table) 07/17/23 12:22 Blood Culture - Preliminary Blood Assessment and Plan (1) Leukocytosis Current Visit: Yes Status: Acute Code(s): D72.829 - ELEVATED WHITE BLOOD CELL COUNT, UNSPECIFIED SNOMED Code(s): 772428773 (2) Streptococcal bacteremia Current Visit: Yes Status: Acute Code(s): R78.81 - BACTEREMIA; B95.5 - UNSP STREPTOCOCCUS THE CAUSE OF DISEASES CLASSD ELSR SNOMED Code(s): 877079569658 (3) UTI (urinary tract infection) Current Visit: Yes Status: Acute Code(s): N39.0 - URINARY TRACT INFECTION, SITE NOT SPECIFIED SNOMED Code(s): 66593390 Plan: 1patient presented hospital with sepsis in this patient noted to have fever elevated white count source possibly urinary in this patient has been on the floor unable to get up feeling weak did have some difficulty urination positive UA concerning for possible UTI with evidence of left-sided hydronephrosis on the ultrasound urology placed a Scott catheter subsequent discontinued 2-patient did have a streptococcal agalactiae bacteremia source likely urinary repeat blood culture has been negative has received adequate Rocephin and finishing therapy with oral Ceftin and close outpatient follow-up discussed with [employer] for admitting team Dictation was produced using [employer] dictation software. please excuse any grammatical, word or spelling errors. Time with Patient: Less than 30
--- NOTE | 2023-07-21 14:58 | DS ---
DISCHARGE SUMMARY HISTORY OF PRESENT ILLNESS: This is a 67-year-old gentleman, who was admitted with acute UTI with sepsis, will be returned to [facility] at this time. The patient was improved significantly. The patient also had lice infection. The patient will be discharged to [facility]. Please refer to the previous dictation for list of the diagnoses and hospital course. PHYSICAL EXAMINATION: VITAL SIGNS: Stable. CARDIOVASCULAR: S1 and S2. ABDOMEN: Soft. NERVOUS SYSTEM: No focal deficits. Please refer to the discharge records sheet for list of medications. Total time taken 35 minutes. CORYL / NAYELIN: [id number] /
== END 2023-07-21 15:09 | DRG 872 ==
LOC: EC 20:48 → 3SCARD 07-16 01:48 → 1SOBS 07-16 13:44 → 4SSUR 07-19 17:14
PROVIDERS: ADMIT Hospitalist; ATTEND Hospitalist
PROC: 0T7D8ZZ Dilation of Urethra, Via Natural or Artificial Opening Endoscopic (ICD-10-PCS; principal; 2023-07-17)
PROC: 0T9B70Z Drainage of Bladder with Drainage Device, Via Natural or Artificial Opening (ICD-10-PCS; 2023-07-17)
DX: A40.8 Other streptococcal sepsis (principal); N13.6 Pyonephrosis; E87.1 Hypo-osmolality and hyponatremia; L03.115 Cellulitis of right lower limb; E87.20 Acidosis, unspecified; E11.42 Type 2 diabetes mellitus with diabetic polyneuropathy; E86.0 Dehydration; I10 Essential (primary) hypertension; Z68.29 Body mass index [BMI] 29.0-29.9, adult; E66.9 Obesity, unspecified; B85.0 Pediculosis due to Pediculus humanus capitis; Z91.199 Patient's noncompliance with other medical treatment and regimen due to unspecified reason; R33.8 Other retention of urine; R53.1 Weakness; G47.30 Sleep apnea, unspecified; L40.9 Psoriasis, unspecified; N35.912 Unspecified bulbous urethral stricture, male; R32 Unspecified urinary incontinence; N40.1 Benign prostatic hyperplasia with lower urinary tract symptoms; W19.XXXA Unspecified fall, initial encounter; Z79.4 Long term (current) use of insulin; Z79.899 Other long term (current) drug therapy; Z82.49 Family history of ischemic heart disease and other diseases of the circulatory system; Z91.148 Patient's other noncompliance with medication regimen for other reason; Z79.84 Long term (current) use of oral hypoglycemic drugs
CPT/HCPCS: 36415; 71046; 76770; 80048; 80053; 81001; 82009; 82550; 83036; 83605; 85025; 87040; 87077; 87086; 87186; 93005; 96361; 96374; 99285

== ENCOUNTER → 2024-06-18 | Outpatient (CLI) | payer MEDICARE, OTHER ==
[2024-06-18 15:46] LABS: ALT 19 U/L (10-49); AST 19 U/L (14-35); Albumin 3.8 g/dL (3.8-4.9); Albumin/Globulin Ratio 1.09 Ratio (1.60-3.17); Alkaline Phosphatase 110 U/L (41-126); BUN/Creat Ratio 24.75 Ratio (12.00-20.00); Blood Urea Nitrogen 19.8 mg/dL (9.0-27.0); Carbon Dioxide 27.7 mmol/L (21.6-31.8); Chloride 100 mmol/L (96-109); Globulin 3.5 g/dL (1.6-3.3); Glucose 141 mg/dL (70-110); Potassium 4.7 mmol/L (3.5-5.5); Sodium 139 mmol/L (135-145); Total Bilirubin 0.3 mg/dL (0.3-1.2); Total Protein 7.3 g/dL (6.2-8.2)
[2024-06-18 15:58] LABS: HCT 44.7 % (39.6-50.0); HGB 14.2 g/dL (13.0-17.0); MCH 28.2 pg (27.0-32.0); MCHC 31.8 g/dL (32.0-37.0); MCV 88.9 FL (80.0-97.0); Mean Platelet Volume 10.6 FL (9.5-12.2); NRBC Per 100 WBC 0 X 10*3/uL (0.00-0.01); Platelet Count 262 X 10*3/uL (140-440); RBC 5.03 X 10*6/uL (4.40-5.60); RDW 13.8 % (11.5-14.5); WBC 9.71 X 10*3/uL (4.50-10.00)
== END | disposition home or self-care (01) ==
LOC: LABWHC1 09:48
PROVIDERS: ATTEND Family Medicine
DX: I10 Essential (primary) hypertension (principal); E11.649 Type 2 diabetes mellitus with hypoglycemia without coma; N40.1 Benign prostatic hyperplasia with lower urinary tract symptoms; E66.01 Morbid (severe) obesity due to excess calories
CPT/HCPCS: 36415; 80053; 82306; 83036; 84153; 84443; 85027

== ENCOUNTER → 2024-09-10 | Outpatient (CLI) | payer MEDICARE, OTHER ==
--- NOTE | 2024-09-10 16:46 | US ---
EXAMINATION TYPE: US kidneys/renal and bladder DATE OF EXAM: 09/10/2024 COMPARISON: 07/17/2023 CLINICAL INDICATION: Male, 68 years old with history of N40.1 BENIGN PROSTATIC HYPERPLASIA WITH LOWER URIN; hx bladder diverticula. Hx left hydronephrosis with stent placement. TECHNIQUE: Grayscale imaging of the bilateral kidneys and urinary bladder: FINDINGS: EXAM MEASUREMENTS: Right Kidney: 10.5 x 5.9 x 5.4 cm Left Kidney: 11.2 x 4.7 x 5.4 cm Right Kidney: No hydronephrosis or masses seen Left Kidney: No hydronephrosis or masses seen Bladder: Distended. Anechoic. Suspect a 4.7 cm fundal diverticulum. Left jet seen IMPRESSION: 1. No hydronephrosis. 2. Suspect a 4.7 cm fundal bladder wall diverticulum. [facility], , 09/10/2024 4:44 PM
== END | disposition home or self-care (01) ==
LOC: RADUSWWP 15:52
PROVIDERS: ATTEND Urology
DX: N40.1 Benign prostatic hyperplasia with lower urinary tract symptoms (principal); N13.8 Other obstructive and reflux uropathy
CPT/HCPCS: 76770

== ENCOUNTER → 2024-09-15 | Outpatient (CLI) | payer MEDICARE, OTHER ==
[2024-09-15 15:27] LABS: HCT 43.3 % (39.6-50.0); HGB 13.6 g/dL (13.0-17.0); MCH 27.7 pg (27.0-32.0); MCHC 31.4 g/dL (32.0-37.0); MCV 88.2 FL (80.0-97.0); NRBC Per 100 WBC 0 X 10*3/uL (0.00-0.01); Platelet Count 242 X 10*3/uL (140-440); RBC 4.91 X 10*6/uL (4.40-5.60); RDW 13.9 % (11.5-14.5); WBC 8.59 X 10*3/uL (4.50-10.00)
[2024-09-15 15:49] LABS: ALT 21 U/L (10-49); Anion Gap 12.40 mmol/L (4.00-12.00); BUN/Creat Ratio 21.88 Ratio (12.00-20.00); Blood Urea Nitrogen 17.5 mg/dL (9.0-27.0); Calcium 9.4 mg/dL (8.7-10.3); Carbon Dioxide 27.6 mmol/L (21.6-31.8); Chloride 98 mmol/L (96-109); Glucose 145 mg/dL (70-110); Potassium 4.2 mmol/L (3.5-5.5); Sodium 138 mmol/L (135-145)
== END | disposition home or self-care (01) ==
LOC: LABWHC1 10:05
PROVIDERS: ATTEND Family Medicine
DX: I10 Essential (primary) hypertension (principal); E11.649 Type 2 diabetes mellitus with hypoglycemia without coma
CPT/HCPCS: 36415; 80048; 83036; 84460; 85027